=== PATIENT | female | born 1945 | race Caucasian/White ===

== ENCOUNTER 2018-10-09 09:50 | Inpatient (IN) | payer MEDICARE, MEDICAID ==
[~2018-10-09] VITALS: Ht 165.1 cm; Wt 90.6 kg
[2018-10-09] VITALS (15 sets, daily range): BP systolic 92–147; BP diastolic 46–80
[2018-10-09] MEDS: normal saline 1000ml 1,000 ML IV SCH (11:38)
[2018-10-09] MEDS ORDERED: morphine 4 MG/ML inj SYRINge IV PRN ×4 (11:40→13:45)
[2018-10-09] MEDS ORDERED: potassium Cl 20 mEq SR tablet PO PRN ×2 (11:40)
[2018-10-09] MEDS ORDERED: magnesium hydroxide 30ml (MOM) UD suspension PO PRN (11:40)
[2018-10-09] MEDS ORDERED: sodium phosphate inj. 30 MMOL in dextrose 5%-water 250 ML IV PRN (11:40)
[2018-10-09] MEDS ORDERED: magnesium 4gm in 100ml NS 100 ML IV PRN (11:40)
[2018-10-09] MEDS ORDERED: acetaminophen 325mg tablet PO PRN ×2 (11:40)
[2018-10-09] MEDS ORDERED: ondansetron/PF 4mg/2ml inj IV PRN ×2 (11:40→13:45)
[2018-10-09] MEDS ORDERED: magnesium 2GM in 50ml NS 50 ML IV PRN (11:40)
[2018-10-09] MEDS ORDERED: magnesium Cl slow-release 64mg tablet PO PRN (11:40)
[2018-10-09] MEDS ORDERED: Neutra Phos packet PO PRN (11:40)
[2018-10-09] MEDS ORDERED: vancomycin/NS 1 GM ADD-VANTAGE 250 ML IV ONE (11:45)
[2018-10-09] MEDS ORDERED: ceFAZolin 1GM/D5W- ADD-VANTAGE 50 ML IV ONE (11:45)
--- NOTE | 2018-10-09 12:30 | NUR ---
Pt arrived by helicopter and crew from [facility] Pt drowsy but answers questions Appears very weak 3 + pitting edema to legs emily noted Answers questions appropriately Very weak pulse noted HR 130's A flutter vs A fib B/p after several attemps 120 sys by cuff 02 sat 96 % on 2l/min Appears SOB but denies and pain or sob Lungs with scattered crackles IJ to right neck patent
[2018-10-09] MEDS ORDERED: ceFAZolin 1000mg inj ONE ×3 (12:41→13:34)
[2018-10-09] MEDS ORDERED: BUPIVAcaine/PF 2.5mg/ml (0.25%) 10ml vial ONE (12:41)
--- NOTE | 2018-10-09 12:45 | NUR ---
Echo being done at bedside Dr. Lam and surg crew at bedside Dr. Lizarraga present and inserting A line right groin without difficulty B/P 127/71 HR 130 a flutter rr 20 sat 96 %
[2018-10-09] MEDS ORDERED: sevoflurane 250ml liquid IH ONE (12:52)
[2018-10-09] MEDS ORDERED: etomidate 2mg/ml inj. ONE (12:58)
[2018-10-09] MEDS ORDERED: succinylcholine 20mg/ml inj IV ONE (12:59)
[2018-10-09] MEDS ORDERED: fentaNYL /PF 50mcg/ml 5ml ampule ONE (12:59)
--- NOTE | 2018-10-09 13:00 | NUR ---
To OR for pericardial window Pt consented Attempted to reach daughter No answer
[2018-10-09] MEDS ORDERED: phenylephrine 10mg/ml inj. ONE (13:01)
[2018-10-09] MEDS ORDERED: rocuronium 10mg/ml inj IV ONE (13:35)
[2018-10-09] MEDS ORDERED: albumin (Human) 5% 250ml 250 ML IV ONE (13:39)
[2018-10-09] MEDS ORDERED: metoclopramide 5 mg/ml inj IV PRN (13:45)
[2018-10-09] MEDS ORDERED: CADD PCA waste documentation MC PRN (13:45)
[2018-10-09] MEDS ORDERED: naloxone 0.4 mg/ml inj IV PRN (13:45)
--- NOTE | 2018-10-09 14:15 | NUR ---
pt received from surg post pericardial drainage and insertion of single midsternal chest tube mod amt of serous sang drainage No air leak noted Vss Mointer shows RSR rate 80 Pt cool Noted toes emily blue with sluggish circ Doppler post tibal pulses present Lung clear Pt on vent see notes RT Pt sedated
[2018-10-09 15:00] LABS: ABG BASE EXCESS -10.1 mmol/L (-2.0-3.0); ABG HCO3 15.2 mmol/L (22.0-26.0); ABG OXYGEN SATURATION 99.4 % (95-98); ABG PCO2 (T) 31.5 mmHg (32.0-45.0); ABG PH (T) 7.302 (7.350-7.450); ABG PO2 (T) 275.2 mmHg (83-108); FCOHb 0.7 % (0.5-1.5); FMetHb 0.2 % (0.3-1.12); FO2Hb 98.5 % (94-100)
--- NOTE | 2018-10-09 15:00 | NUR ---
Dr. Lizarraga at bedside and Dr. Esparza orders received and noted Orders for cat scan with contrast Dr. Lizarraga aware of pt allergies Meds to be given before prep
[2018-10-09 15:24] LABS: EOSINOPHILS % (AUTO) 0.3 % (0-6); HEMATOCRIT 28.6 % (35.0-45.0); HEMOGLOBIN 9.3 g/dl (12.0-16.0); LYMPHOCYTES # (AUTO) 0.5 X10'3 (1.1-4.8); MEAN CORPUSCULAR HEMOGLOBIN 27.5 PG (27.0-31.0); MEAN CORPUSCULAR HGB CONC 32.6 g/dL (33.0-36.5); MEAN CORPUSCULAR VOLUME 84.4 FL (78-98); MEAN PLATELET VOLUME 8.8 FL (7.4-10.4); MONOCYTES # (AUTO) 0.2 X10'3 (0-0.9); MONOCYTES % (AUTO) 3.6 % (2-12); NEUTROPHILS # (AUTO) 3.6 X10'3 (1.8-7.7); NEUTROPHILS % (AUTO) 83.1 % (42-75); PLATELET COUNT 146 X10'3 (140-440); RED BLOOD COUNT 3.39 X10'6 (4.20-5.60); RED CELL DISTRIBUTION WIDTH 18.5 % (11.5-14.5); WHITE BLOOD COUNT 4.3 X10'3 (4.5-11.0)
[2018-10-09 15:49] LABS: ALANINE AMINOTRANSFERASE 189 U/L (12-78); ALBUMIN 2.2 G/DL (3.4-5.0); ALBUMIN/GLOBULIN RATIO 0.8 (1.1-1.5); ALKALINE PHOSPHATASE 116 IU/L (46-116); ANION GAP 13 (8-16); ASPARTATE AMINO TRANSFERASE 571 U/L (10-37); BILIRUBIN,TOTAL 0.4 MG/DL (0.1-1.0); BLOOD UREA NITROGEN 18 MG/DL (7-18); BUN/CREATININE RATIO 18.6 (6.6-38.0); CALCIUM 7.3 MG/DL (8.5-10.1); CHLORIDE 107 MMOL/L (99-107); CREATININE 0.97 MG/DL (0.40-0.90); GLUCOSE 110 MG/DL (70-104); LDL CHOLESTEROL 34 MG/DL (50-100); MAGNESIUM 1.6 MG/DL (1.5-2.4); PHOSPHORUS 3.2 MG/DL (2.3-4.5); POTASSIUM 3.6 MMOL/L (3.5-5.1); SODIUM 137 MMOL/L (135-145); TOTAL CARBON DIOXIDE 16.8 MMOL/L (24-32); eGFR 56 ML/MIN
[2018-10-09 15:59] LABS: ALBUMIN,BODY FLUID 1.2 G/DL; AMYLASE,BODY FLUID 6 U/L; BF BILI 3.2 MG/DL; LIPASE,BODY FLUID 78 U/L; UREA NITROGEN, BODY FLUID 20 MG/DL
[2018-10-09 16:00] LABS: GLUCOSE,BODY FLUID 23 MG/DL; LDH,BODY FLUID 3350 U/L; TOTAL PROTEIN,BODY FLUID 3.8 G/DL
[2018-10-09 16:21] LABS: LYMPHOCYTES,BODY FLUID 25 %; MONOCYTES,BODY FLUID 44 %; NEUTROPHILS,BODY FLUID 31 %
[2018-10-09 16:23] LABS: BF WBC COUNT 1889 /CU MM (0-1000); BFAPPEAR BLOODY; BFCOLOR RED; BFVOLUME 170 ML
[2018-10-09 16:24] LABS: BF RBC COUNT 1615000 /CU MM
[2018-10-09] MEDS ORDERED: levoTHYROXINE sod inj. 100mcg/5 ml vial IV ONE (16:55)
[2018-10-09] MEDS: ceFAZolin inj. 1,000 MG in dextrose 5%-water 50ml 50 ML IV SCH (17:00)
[2018-10-09] MEDS: methylPREDNISolone sod succ 125mg/2ml vial IV SCH ×2 (17:00→20:00)
--- NOTE | 2018-10-09 17:05 | NUR ---
Pt starting to awaken special librarian weakly emily Nods head "yes " to pain med with morphine IV oral care done Pt reposit onto left side margarita well UO QS amts CT with mod drainage VSS Orders received for sedation for night Cat scan of abd ordered in AM after prep
[2018-10-09] MEDS ORDERED: FENTANYL-0.9 % NACL/PF 100 ML IV PRN (17:13)
[2018-10-09] MEDS ORDERED: midazolam 100mg in NS 100ml 100 ML IV PRN (17:13)
[2018-10-09] MEDS ORDERED: fentaNYL/PF 50MCG/1 ML 2ML syringe IV PRN (17:15)
[2018-10-09] MEDS ORDERED: midazolam 2 mg/2 ml injection IV ONE (17:15)
[2018-10-09 17:28] LABS: MINUTE VOLUME 7.3 L/min; TIDAL VOLUME 500 mL
[2018-10-09] MEDS ORDERED: DIPH1TAB28 PO (18:09)
[2018-10-09] MEDS ORDERED: CHOL100046 PO (18:09)
[2018-10-09] MEDS ORDERED: CLON0.5T12 PO (18:09)
[2018-10-09] MEDS ORDERED: MULT-955 PO (18:09)
[2018-10-09] MEDS ORDERED: LIDO1ADH44 TOP (18:09)
[2018-10-09] MEDS ORDERED: LAMO25TA PO (18:09)
[2018-10-09] MEDS ORDERED: ATOR40TA72 PO (18:09)
[2018-10-09] MEDS ORDERED: MODA200T48 PO (18:09)
[2018-10-09] MEDS ORDERED: CYAN1TAB16 PO (18:09)
[2018-10-09] MEDS ORDERED: ACYC400T PO (18:09)
[2018-10-09] MEDS ORDERED: SUMA50TA17 PO (18:09)
[2018-10-09] MEDS ORDERED: DULO30CA51 PO (18:09)
[2018-10-09] MEDS ORDERED: PREG100C PO (18:09)
[2018-10-09] MEDS ORDERED: OMEP20CA10 PO (18:12)
[2018-10-09] MEDS ORDERED: diphenhydrAMINE 50 mg/ml inj IV ONE (18:30)
--- NOTE | 2018-10-09 18:30 | NUR ---
Problems reprioritized. Patient report given, questions answered & plan of care reviewed with Wilder BURNETTEbiomedical technician [facility] .
[2018-10-09] MEDS: ipratropium/albuterol 3ml nebule NEB PRN (19:05)
[2018-10-09] MEDS: docusate sod 100mg capsule PO SCH (20:00)
[2018-10-09] MEDS: FENTANYL-0.9 % NACL/PF 100 ML IV SCH (20:29)
[2018-10-09] MEDS: diatr meglu/diatrizoate 30ml oral sol.-(3 dose) bottle PO SCH (21:54)
[2018-10-10] VITALS (24 sets, daily range): BP systolic 88–129; BP diastolic 46–60
[2018-10-10] MEDS: ceFAZolin inj. 1,000 MG in dextrose 5%-water 50ml 50 ML IV SCH (00:14)
[2018-10-10] MEDS: normal saline 1000ml 1,000 ML IV SCH ×2 (00:58→14:18)
[2018-10-10 03:08] LABS: BASOPHILS % (AUTO) 0.1 % (0-1); EOSINOPHILS % (AUTO) 0.8 % (0-6); HEMATOCRIT 29.4 % (35.0-45.0); HEMOGLOBIN 9.6 g/dl (12.0-16.0); LYMPHOCYTES # (AUTO) 0.8 X10'3 (1.1-4.8); LYMPHOCYTES % (AUTO) 16.1 % (21-51); MEAN CORPUSCULAR HEMOGLOBIN 27.3 PG (27.0-31.0); MEAN CORPUSCULAR HGB CONC 32.5 g/dL (33.0-36.5); MEAN CORPUSCULAR VOLUME 83.9 FL (78-98); MEAN PLATELET VOLUME 9.5 FL (7.4-10.4); MONOCYTES # (AUTO) 0.1 X10'3 (0-0.9); MONOCYTES % (AUTO) 2.9 % (2-12); NEUTROPHILS # (AUTO) 3.8 X10'3 (1.8-7.7); NEUTROPHILS % (AUTO) 80.1 % (42-75); PLATELET COUNT 169 X10'3 (140-440); RED CELL DISTRIBUTION WIDTH 18.7 % (11.5-14.5); WHITE BLOOD COUNT 4.7 X10'3 (4.5-11.0)
[2018-10-10 03:18] LABS: ALANINE AMINOTRANSFERASE 208 U/L (12-78); ALBUMIN 1.9 G/DL (3.4-5.0); ALBUMIN/GLOBULIN RATIO 0.7 (1.1-1.5); ALKALINE PHOSPHATASE 106 IU/L (46-116); ANION GAP 13 (8-16); ASPARTATE AMINO TRANSFERASE 518 U/L (10-37); BILIRUBIN,TOTAL 0.2 MG/DL (0.1-1.0); BLOOD UREA NITROGEN 17 MG/DL (7-18); BUN/CREATININE RATIO 18.5 (6.6-38.0); CALCIUM 7.2 MG/DL (8.5-10.1); CHLORIDE 109 MMOL/L (99-107); CREATININE 0.92 MG/DL (0.40-0.90); GLUCOSE 110 MG/DL (70-104); MAGNESIUM 1.4 MG/DL (1.5-2.4); PHOSPHORUS 2.8 MG/DL (2.3-4.5); POTASSIUM 3.4 MMOL/L (3.5-5.1); SODIUM 139 MMOL/L (135-145); TOTAL PROTEIN 4.6 G/DL (6.4-8.2); eGFR 60 ML/MIN
[2018-10-10] MEDS: methylPREDNISolone sod succ 125mg/2ml vial IV SCH ×3 (03:40→14:18)
[2018-10-10 05:46] LABS: ABG BASE EXCESS -9.9 mmol/L (-2.0-3.0); ABG HCO3 15.5 mmol/L (22.0-26.0); ABG OXYGEN SATURATION 96.4 % (95-98); ABG PCO2 (T) 31.4 mmHg (32.0-45.0); ABG PH (T) 7.307 (7.350-7.450); ABG PO2 (T) 92.1 mmHg (83-108); FCOHb 0.3 % (0.5-1.5); FMetHb 0.2 % (0.3-1.12); FO2Hb 95.9 % (94-100); MINUTE VOLUME 6 L/min; PATIENT TEMPERATURE 36.4; PEEP 5 cm H2O; RESPIRATORY RATE 12 b/min; RESPIRATORY RATE (OBSERVED) 12 b/min; TIDAL VOLUME 500 mL; TOTAL HEMOGLOBIN 10.9 G/dl (12.0-16.0)
[2018-10-10] MEDS ORDERED: levoTHYROXINE 25mcg tablet PO SCH (07:00)
[2018-10-10] MEDS ORDERED: albumin (Human) 5% 250ml 250 ML IV ONE (07:20)
[2018-10-10] MEDS ORDERED: potassium Cl 20mEq/100mL bag 100 ML IV PRN ×2 (07:25)
[2018-10-10] MEDS: diatr meglu/diatrizoate 30ml oral sol.-(3 dose) bottle PO SCH ×2 (07:38→18:15)
[2018-10-10] MEDS: docusate sod 100mg capsule PO SCH ×2 (08:00→20:00)
[2018-10-10] MEDS: pantoprazole 40 MG vial IV SCH (09:09)
--- NOTE | 2018-10-10 10:19 | NUR ---
Cdiff isolation cancelled per ID
[2018-10-10] MEDS: potassium Cl 20mEq/100mL bag 100 ML IV PRN ×4 (10:33→16:00)
--- NOTE | 2018-10-10 11:47 | NUR ---
Dr Rae at bedside. Orders received. CT abd/pelvis with PO contrast only. Plan to extubate today
[2018-10-10 12:16] LABS: OXYGEN SATURATION (MIXED VEN) 68.1 % (60-80); PO2 MIXED VENOUS (TEMP COR) 34.1 mmHg (35-46)
--- NOTE | 2018-10-10 13:30 | NUR ---
Back from CT; no complications. Extubated to 4L NC; pt tolerated well
[2018-10-10] MEDS: ALBUMIN 25% IV SCH ×2 (13:59→14:13)
[2018-10-10] MEDS: levoTHYROXINE sod inj. 100mcg/5 ml vial IV SCH (14:36)
--- NOTE | 2018-10-10 15:02 | NUR ---
Initial: Patient is on mechanical ventilated on CPAP mode. Mildly sedated, hypothermic per MD note and is s/p subxiphoid pericardial window procedure on 10/09 after found to have pericardiac tamponade; NPO at this time. Recommend: 1. IF to receive nutrition while intubated recommend continuous tube feedings per OG tube using Vital AF at 70 ml/hr 2. IF to receive tube feedings: daily wts, prealbumin q /, water flush per MD 3. When extubated, advance diet as medically indicated to regular Addendum: 10/10/18 at [address] Amended: Links added.
--- NOTE | 2018-10-10 15:27 | NUR ---
Initial: Patient was recently extubated, s/p subxiphoid pericardial window procedure on 10/09 after found to have pericardiac tamponade; NPO at this time. Recommend: 1. advance diet as medically indicated to regular 2. monitor need for ONS 3. WT per rx Addendum: 10/10/18 at [address] Amended: Links added.
[2018-10-10] MEDS: albumin 25% 50mL bottle 100 ML IV SCH ×2 (16:03→21:42)
--- NOTE | 2018-10-10 17:15 | NUR ---
Patient taken to CT @1230. All vitals and data in the monitors are gone from before that time. Unable to chart any vitals for the first half of the shift.
[2018-10-10] MEDS: mineral oil/petrolatum ophthal oint EACHEYE SCH (20:00)
[2018-10-10] MEDS: methylPREDNISolone sod succ/PF 40mg inj. IV SCH (21:24)
[2018-10-10] MEDS: heparin, porcine 5000 units/ml vial SQ SCH (21:44)
[2018-10-11] VITALS (24 sets, daily range): BP systolic 98–152; BP diastolic 54–87
[2018-10-11] MEDS: albumin 25% 50mL bottle 100 ML IV SCH ×2 (02:00→08:08)
[2018-10-11] MEDS: mineral oil/petrolatum ophthal oint EACHEYE SCH ×4 (02:00→20:00)
[2018-10-11 03:49] LABS: BASOPHILS % (AUTO) 0.1 % (0-1); EOSINOPHILS % (AUTO) 0 % (0-6); HEMATOCRIT 30.6 % (35.0-45.0); HEMOGLOBIN 9.8 g/dl (12.0-16.0); LYMPHOCYTES # (AUTO) 0.6 X10'3 (1.1-4.8); LYMPHOCYTES % (AUTO) 9.2 % (21-51); MEAN CORPUSCULAR HEMOGLOBIN 27.1 PG (27.0-31.0); MEAN CORPUSCULAR HGB CONC 32.1 g/dL (33.0-36.5); MEAN CORPUSCULAR VOLUME 84.5 FL (78-98); MEAN PLATELET VOLUME 9.6 FL (7.4-10.4); MONOCYTES # (AUTO) 0.2 X10'3 (0-0.9); MONOCYTES % (AUTO) 3.1 % (2-12); NEUTROPHILS # (AUTO) 5.9 X10'3 (1.8-7.7); NEUTROPHILS % (AUTO) 87.6 % (42-75); PLATELET COUNT 224 X10'3 (140-440); RED BLOOD COUNT 3.62 X10'6 (4.20-5.60); RED CELL DISTRIBUTION WIDTH 19.4 % (11.5-14.5); WHITE BLOOD COUNT 6.7 X10'3 (4.5-11.0)
[2018-10-11 03:52] LABS: ALANINE AMINOTRANSFERASE 101 U/L (12-78); ALBUMIN 3.3 G/DL (3.4-5.0); ALBUMIN/GLOBULIN RATIO 1.6 (1.1-1.5); ALKALINE PHOSPHATASE 115 IU/L (46-116); ANION GAP 16 (8-16); ASPARTATE AMINO TRANSFERASE 171 U/L (10-37); BILIRUBIN,TOTAL 0.4 MG/DL (0.1-1.0); BLOOD UREA NITROGEN 15 MG/DL (7-18); BUN/CREATININE RATIO 17.9 (6.6-38.0); CALCIUM 7.9 MG/DL (8.5-10.1); CHLORIDE 109 MMOL/L (99-107); CREATININE 0.84 MG/DL (0.40-0.90); GLUCOSE 115 MG/DL (70-104); MAGNESIUM 2.3 MG/DL (1.5-2.4); POTASSIUM 4.6 MMOL/L (3.5-5.1); SODIUM 141 MMOL/L (135-145); TOTAL CARBON DIOXIDE 16.3 MMOL/L (24-32); TOTAL PROTEIN 5.4 G/DL (6.4-8.2); eGFR 66 ML/MIN
[2018-10-11] MEDS: FENTANYL-0.9 % NACL/PF 100 ML IV SCH (07:46)
[2018-10-11] MEDS: docusate sod 100mg capsule PO SCH ×2 (07:46→19:41)
[2018-10-11] MEDS: methylPREDNISolone sod succ/PF 40mg inj. IV SCH ×3 (08:08→19:27)
[2018-10-11] MEDS: heparin, porcine 5000 units/ml vial SQ SCH ×2 (08:09→19:28)
[2018-10-11] MEDS: pantoprazole 40 MG vial IV SCH (08:09)
[2018-10-11] MEDS: levoTHYROXINE sod inj. 100mcg/5 ml vial IV SCH (08:14)
[2018-10-11] MEDS ORDERED: bisacodyl 10mg suppository rectal RC PRN (11:40)
[2018-10-11] MEDS ORDERED: tuberculin, purif. prot. deriv. 5 units/0.1ml ID ONE (13:00)
[2018-10-11] MEDS: HYDROcodone/acetaminophen 10/325mg tab PO PRN ×2 (18:39→23:06)
[2018-10-11] MEDS: clonazePAM 0.5mg tablet PO PRN (19:26)
[2018-10-12] VITALS (16 sets, daily range): BP systolic 121–158; BP diastolic 49–87
[2018-10-12] MEDS: clonazePAM 0.5mg tablet PO PRN ×3 (00:29→22:45)
[2018-10-12] MEDS: mineral oil/petrolatum ophthal oint EACHEYE SCH ×3 (02:00→14:00)
[2018-10-12] MEDS: methylPREDNISolone sod succ/PF 40mg inj. IV SCH ×4 (02:00→19:45)
[2018-10-12] MEDS: HYDROcodone/acetaminophen 10/325mg tab PO PRN ×2 (03:48→19:44)
[2018-10-12 04:17] LABS: BASOPHILS % (AUTO) 0.3 % (0-1); EOSINOPHILS # (AUTO) 0.1 X10'3 (0-0.9); EOSINOPHILS % (AUTO) 0.9 % (0-6); HEMATOCRIT 39.3 % (35.0-45.0); HEMOGLOBIN 12.4 g/dl (12.0-16.0); LYMPHOCYTES # (AUTO) 0.7 X10'3 (1.1-4.8); LYMPHOCYTES % (AUTO) 8.3 % (21-51); MEAN CORPUSCULAR HEMOGLOBIN 26.8 PG (27.0-31.0); MEAN CORPUSCULAR HGB CONC 31.6 g/dL (33.0-36.5); MEAN CORPUSCULAR VOLUME 84.7 FL (78-98); MEAN PLATELET VOLUME 9.3 FL (7.4-10.4); MONOCYTES # (AUTO) 0.2 X10'3 (0-0.9); NEUTROPHILS # (AUTO) 7.3 X10'3 (1.8-7.7); NEUTROPHILS % (AUTO) 88.5 % (42-75); PLATELET COUNT 317 X10'3 (140-440); RED BLOOD COUNT 4.64 X10'6 (4.20-5.60); RED CELL DISTRIBUTION WIDTH 20.2 % (11.5-14.5); WHITE BLOOD COUNT 8.2 X10'3 (4.5-11.0)
[2018-10-12 04:21] LABS: ALANINE AMINOTRANSFERASE 91 U/L (12-78); ALBUMIN 3.2 G/DL (3.4-5.0); ALBUMIN/GLOBULIN RATIO 1.3 (1.1-1.5); ANION GAP 15 (8-16); ASPARTATE AMINO TRANSFERASE 126 U/L (10-37); BILIRUBIN,TOTAL 0.4 MG/DL (0.1-1.0); BLOOD UREA NITROGEN 18 MG/DL (7-18); BUN/CREATININE RATIO 18.2 (6.6-38.0); CALCIUM 7.9 MG/DL (8.5-10.1); CHLORIDE 109 MMOL/L (99-107); CREATININE 0.99 MG/DL (0.40-0.90); GLUCOSE 146 MG/DL (70-104); MAGNESIUM 1.8 MG/DL (1.5-2.4); PHOSPHORUS 3.2 MG/DL (2.3-4.5); POTASSIUM 4.8 MMOL/L (3.5-5.1); SODIUM 142 MMOL/L (135-145); TOTAL CARBON DIOXIDE 17.8 MMOL/L (24-32); TOTAL PROTEIN 5.7 G/DL (6.4-8.2); eGFR 55 ML/MIN
[2018-10-12 04:22] LABS: ALKALINE PHOSPHATASE 121 IU/L (46-116)
--- NOTE | 2018-10-12 06:30 | NUR ---
Patient in room CICU 2009. I have received report from VASILE Hdz and had the opportunity to ask questions and assume patient care.
[2018-10-12] MEDS: docusate sod 100mg capsule PO SCH ×2 (07:31→19:37)
[2018-10-12 08:29] LABS: LARGE PLATELETS FEW; PLATELET ESTIMATE NORMAL
[2018-10-12 08:30] LABS: ANISOCYTOSIS 2+; HYPOCHROMASIA 1+; MICROCYTOSIS 1+; POIKILOCYTOSIS FEW; POLYCHROMASIA FEW; TARGET CELLS FEW
[2018-10-12] MEDS: levoTHYROXINE sod inj. 100mcg/5 ml vial IV SCH (08:39)
[2018-10-12] MEDS: pantoprazole 40 MG vial IV SCH (08:39)
[2018-10-12] MEDS: heparin, porcine 5000 units/ml vial SQ SCH ×2 (08:40→19:45)
--- NOTE | 2018-10-12 10:40 | NUR ---
Discontinued right femoral arterial line, discontinued right internal jugular central line. 20 g PIV placed in right forearm, attempt x1.
--- NOTE | 2018-10-12 10:48 | NUR ---
Report called to VASILE Melendez on Telemetry unit. Pt is currently working with Physical Therapy.
--- NOTE | 2018-10-12 12:30 | NUR ---
Patient in room PCU 3010. I have received report from VASILE Hinkle and had the opportunity to ask questions and assume patient care. Patient stable in no apparent distress and resting comfortably in bed. Vitals stable, 2 RN skin check completed.
--- NOTE | 2018-10-12 16:08 | NUR ---
Called Arnie Parveen to notify her patient's heart rate up to 208 while having bowel movement.
[2018-10-12 17:11] LABS: BASOPHILS # (AUTO) 0.1 X10'3 (0-0.2); BASOPHILS % (AUTO) 0.5 % (0-1); EOSINOPHILS % (AUTO) 0 % (0-6); HEMATOCRIT 42.1 % (35.0-45.0); HEMOGLOBIN 13.5 g/dl (12.0-16.0); LYMPHOCYTES # (AUTO) 0.8 X10'3 (1.1-4.8); LYMPHOCYTES % (AUTO) 6.9 % (21-51); MEAN CORPUSCULAR HEMOGLOBIN 27.2 PG (27.0-31.0); MEAN CORPUSCULAR HGB CONC 32.1 g/dL (33.0-36.5); MEAN CORPUSCULAR VOLUME 84.8 FL (78-98); MEAN PLATELET VOLUME 9.4 FL (7.4-10.4); MONOCYTES # (AUTO) 0.3 X10'3 (0-0.9); MONOCYTES % (AUTO) 2.9 % (2-12); NEUTROPHILS % (AUTO) 89.7 % (42-75); PLATELET COUNT 325 X10'3 (140-440); RED BLOOD COUNT 4.96 X10'6 (4.20-5.60); RED CELL DISTRIBUTION WIDTH 20.9 % (11.5-14.5); WHITE BLOOD COUNT 11.1 X10'3 (4.5-11.0)
[2018-10-12 17:33] LABS: NUCLEATED RED BLOOD CELLS 11 /100WBC (0-0); TOTAL CELLS COUNTED 100
[2018-10-12 17:34] LABS: ANISOCYTOSIS 3+; PLATELET ESTIMATE NORMAL; SMUDGE CELLS FEW
[2018-10-12 17:36] LABS: LARGE PLATELETS FEW
[2018-10-12 17:37] LABS: BURR CELLS 1+; HYPOCHROMASIA 1+; POLYCHROMASIA 2+; TARGET CELLS FEW
--- NOTE | 2018-10-12 18:30 | NUR ---
Problems reprioritized. Patient report given, questions answered & plan of care reviewed with VASILE Carreno and VASILE Wilcox.
--- NOTE | 2018-10-12 18:41 | NUR ---
Patient in room PCU 3010. I have received report from Nora BURNETTE and had the opportunity to ask questions and assume patient care.
[2018-10-13] VITALS (19 sets, daily range): BP systolic 89–119; BP diastolic 40–70
--- NOTE | 2018-10-13 00:58 | NUR ---
Patient is not speaking many words. She is unable to provide history or information. Addendum: 10/13/18 at 0058 by Brenden Abbott RN Amended: Links added.
[2018-10-13] MEDS: methylPREDNISolone sod succ/PF 40mg inj. IV SCH ×4 (02:43→20:11)
--- NOTE | 2018-10-13 02:58 | NUR ---
Left voicemail with Dr. Amezcua, fish hatchery superintendent, regarding five beat run of tachycardia
--- NOTE | 2018-10-13 03:13 | NUR ---
Paged Respiratory for STAT ABG.
--- NOTE | 2018-10-13 03:30 | NUR ---
MIGDALIA AT BEDSIDE TO ASSESS PATIENT WITH ALOC AND INCREASED WEAKNESS; PATIENT UNABLE TO MOVE EXTREMITIES, PATIENT'S ALERTNESS DECREASED TO AXO X1. MIGDALIA ORDERED AMMONIA AND HEAD CT AND ABG. ABG SHOWING PO2 LOW AND PATIENT PLACED ON 15L MASK BY RT. O2SAT 95% WITH CONTINUOUS PULSE OX ON. PATIENT V/S REMAIN STABLE; SEE V/S INTERVENTION. CT PAGED TO MEDICAL CLAIMS ANALYST PATIENT
[2018-10-13 03:36] LABS: ABG BASE EXCESS -12.8 mmol/L (-2.0-3.0); ABG HCO3 14.4 mmol/L (22.0-26.0); ABG OXYGEN SATURATION 90.8 % (95-98); ABG PCO2 (T) 36.4 mmHg (32.0-45.0); ABG PH (T) 7.211 (7.350-7.450); ABG PO2 (T) 64.1 mmHg (83-108); ALLEN'S TEST Positive; FCOHb 0.7 % (0.5-1.5); FLOW 5 L/min; FMetHb 0.3 % (0.3-1.12); FO2Hb 89.9 % (94-100); PATIENT TEMPERATURE 36.3; RESPIRATORY RATE (OBSERVED) 22 b/min; TOTAL HEMOGLOBIN 13.8 G/dl (12.0-16.0)
[2018-10-13 04:03] LABS: BASOPHILS # (AUTO) 0.1 X10'3 (0-0.2); BASOPHILS % (AUTO) 0.7 % (0-1); EOSINOPHILS % (AUTO) 0 % (0-6); HEMATOCRIT 42.8 % (35.0-45.0); HEMOGLOBIN 13.5 g/dl (12.0-16.0); LYMPHOCYTES # (AUTO) 0.6 X10'3 (1.1-4.8); LYMPHOCYTES % (AUTO) 3.4 % (21-51); MEAN CORPUSCULAR HEMOGLOBIN 27.2 PG (27.0-31.0); MEAN CORPUSCULAR HGB CONC 31.6 g/dL (33.0-36.5); MEAN PLATELET VOLUME 9.6 FL (7.4-10.4); MONOCYTES # (AUTO) 0.3 X10'3 (0-0.9); MONOCYTES % (AUTO) 2.1 % (2-12); NEUTROPHILS # (AUTO) 15.3 X10'3 (1.8-7.7); NEUTROPHILS % (AUTO) 93.8 % (42-75); PLATELET COUNT 326 X10'3 (140-440); RED BLOOD COUNT 4.98 X10'6 (4.20-5.60); RED CELL DISTRIBUTION WIDTH 21.8 % (11.5-14.5)
[2018-10-13 04:09] LABS: ALANINE AMINOTRANSFERASE 90 U/L (12-78); ALBUMIN 3.2 G/DL (3.4-5.0); ALBUMIN/GLOBULIN RATIO 1.2 (1.1-1.5); ALKALINE PHOSPHATASE 127 IU/L (46-116); ANION GAP 14 (8-16); ASPARTATE AMINO TRANSFERASE 112 U/L (10-37); BILIRUBIN,TOTAL 0.4 MG/DL (0.1-1.0); BLOOD UREA NITROGEN 24 MG/DL (7-18); BUN/CREATININE RATIO 21.2 (6.6-38.0); CALCIUM 8.3 MG/DL (8.5-10.1); CHLORIDE 110 MMOL/L (99-107); CREATININE 1.13 MG/DL (0.40-0.90); GLUCOSE 191 MG/DL (70-104); MAGNESIUM 1.9 MG/DL (1.5-2.4); PHOSPHORUS 3.4 MG/DL (2.3-4.5); POTASSIUM 5.4 MMOL/L (3.5-5.1); SODIUM 142 MMOL/L (135-145); TOTAL CARBON DIOXIDE 18.3 MMOL/L (24-32); TOTAL PROTEIN 5.8 G/DL (6.4-8.2); TROPONIN I 0.31 NG/ML (0.0-0.05); eGFR 47 ML/MIN
--- NOTE | 2018-10-13 04:25 | NUR ---
Telephoned Parker Amezcua, Human Resources Benefits Manager regarding lab results. Mr. Jaegercock states that he is aware and is currently reviewing these lab results. CT results still pending. No new orders at this time.
--- NOTE | 2018-10-13 04:43 | NUR ---
Patient seems to be even weaker and less alert. Locksmith Helper notified. Respiratory therapy and radiology involved. See other notes. Addendum: 10/13/18 at 0447 by Brenden Abbott RN Amended: Links added.
--- NOTE | 2018-10-13 05:44 | NUR ---
CALLED LAB ABOUT REDRAWING LACTIC IN 2 HOURS FROM FIRST ONE THAT WAS 2.5; NO NEW ORDER PLACED FOR A REDRAW YET. USED CAR RENOVATOR STATED THEY WOULD FIX THIS
--- NOTE | 2018-10-13 06:24 | NUR ---
ORIENTEE documentation: I have reviewed and agree with all interventions, assessments performed and documented by CONNIE BURNETTE.
--- NOTE | 2018-10-13 06:24 | NUR ---
ORIENTEE Medication Administration: For this medication-pass time frame, all medication were reviewed, dispensed, administered and documented per hospital policy by CONNIE BURNETTE.
--- NOTE | 2018-10-13 06:35 | NUR ---
Problems reprioritized. Patient report given, questions answered & plan of care reviewed with PRADEEP BURNETTE. PATIENT AWAKE ON 15L MASK; CHEST TUBE ASSESSED WITH DAY SHIFT NURSE.
[2018-10-13 06:46] LABS: ANISOCYTOSIS 3+; HYPOCHROMASIA 1+; NUCLEATED RED BLOOD CELLS 10 /100WBC (0-0); PLATELET ESTIMATE NORMAL; POLYCHROMASIA 2+; TOTAL CELLS COUNTED 100
[2018-10-13 06:47] LABS: LARGE PLATELETS FEW; SMUDGE CELLS 1+
[2018-10-13] MEDS: ipratropium/albuterol 3ml nebule NEB PRN (07:59)
[2018-10-13] MEDS: levoTHYROXINE sod inj. 100mcg/5 ml vial IV SCH (08:00)
[2018-10-13] MEDS: docusate sod 100mg capsule PO SCH ×2 (08:00→19:50)
[2018-10-13 08:11] LABS: ABG BASE EXCESS -11.9 mmol/L (-2.0-3.0); ABG HCO3 17.7 mmol/L (22.0-26.0); ABG OXYGEN SATURATION 93.5 % (95-98); ABG PCO2 (T) 55.3 mmHg (32.0-45.0); ABG PH (T) 7.122 (7.350-7.450); ABG PO2 (T) 82.2 mmHg (83-108); ALLEN'S TEST Positive; FCOHb 0.4 % (0.5-1.5); FLOW 15 L/min; FMetHb 0.4 % (0.3-1.12); FO2Hb 92.8 % (94-100)
--- NOTE | 2018-10-13 08:25 | NUR ---
Patient received from PCU for rapid response for ALOC and SOB. ABG and CXR obtained. Beside report received. Patient became bradycardiac in the 40's while transferring pt to ICU bed and BP dropped. Recovered quickly. CT @10ml. CT found to be clamped. Chest tube unclamped and 400ml serous fluid drained.
--- NOTE | 2018-10-13 08:30 | NUR ---
Patient intubated, at the bedside.
--- NOTE | 2018-10-13 09:00 | NUR ---
Patient's MAP in the 50's for the last hour. MD notified. New orders received and CVL placed for Levophed if needed
--- NOTE | 2018-10-13 09:04 | NUR ---
When I arrived this morning I received report from Ev and Brenden RNs. They told me the pt. was A&O x2 yesterday but over night started to get less responsive. Ev stated they did an ABG and chest x-ray last night and had to place the pt. on a mask at 15L but they shift boss doctor did not want to move her back to ICU. This morning she is really lethargic and not sating very well. Silvio Gannon came and saw her and did not think she looked very good so he left to discuss with Dr. Evans. We ordered another chest x-ray for this morning and another ABG. I called Dr. Rae and informed him of the situation and he ordered me to take her to ICU. Dr. Rae then arrived on our floor and we took her down to ICU.
[2018-10-13] MEDS: midazolam 2 mg/2 ml injection IV PRN ×8 (09:27→16:30)
[2018-10-13 09:56] LABS: ABG BASE EXCESS -9.7 mmol/L (-2.0-3.0); ABG HCO3 16.7 mmol/L (22.0-26.0); ABG OXYGEN SATURATION 98.9 % (95-98); ABG PH (T) 7.251 (7.350-7.450); ABG PO2 (T) 196.6 mmHg (83-108); FCOHb 0.5 % (0.5-1.5); FMetHb 0.2 % (0.3-1.12); FO2Hb 98.2 % (94-100); MINUTE VOLUME 6 L/min; PATIENT TEMPERATURE 37.3; PEEP 5 cm H2O; RESPIRATORY RATE 12 b/min; RESPIRATORY RATE (OBSERVED) 13 b/min; TIDAL VOLUME 400 mL; TOTAL HEMOGLOBIN 12.2 G/dl (12.0-16.0)
[2018-10-13 10:14] LABS: WHITE BLOOD COUNT 16.3 X10'3 (4.5-11.0)
--- NOTE | 2018-10-13 10:30 | NUR ---
OK to use [place] per
[2018-10-13] MEDS ORDERED: normal saline 1000ml 1,000 ML IV ONE ×2 (10:50)
[2018-10-13] MEDS: heparin, porcine 5000 units/ml vial SQ SCH ×2 (10:57→20:12)
[2018-10-13] MEDS: pantoprazole 40 MG vial IV SCH (10:57)
[2018-10-13] MEDS: normal saline 1000ml 1,000 ML IV SCH ×2 (11:02→20:32)
[2018-10-13] MEDS: fentaNYL/PF 50MCG/1 ML 2ML syringe IV PRN ×3 (11:03→15:59)
--- NOTE | 2018-10-13 11:58 | NUR ---
Tube feeding consult, patient has corpak in distal stomach per imaging report. Had clear liquid diet though now is discontinued. Spoke with patient at bedside and she reported to have recently lost weight d/t her tongue being "brandon" and causing pain and difficulty chewing. There is no previous documented weights though she reports weighing over 200 lbs within a year of this time. She is currently 195 lbs. Will continue to follow. Recommend: 1. Continuos tube feedings per Corpak starting at 20 ml/hr and advance by 20 ml q 8 to goal rate of 75 ml/hr using Jevity 1.2 will provide total volume 1800 ml, 2160 cals, 100 gm protein, 1453 ml free water. 2. Additional water flush 130 ml q 4 3. Daily wts 4. Prealbumin q / 5. Recommend BSS prior to diet advancement and advance diet as medically indicated to regular per HIDE OR SKIN BUFFER recs 6. monitor need for ONS when patient's diet is advanced Addendum: 10/13/18 at [address] Amended: Links added.
[2018-10-13] MEDS: piperacillin/tazo 3.375gm/50ml 50 ML IV SCH ×2 (12:00→16:35)
[2018-10-13 12:02] LABS: ALLEN'S TEST Positive
[2018-10-13 12:22] LABS: OXYGEN SATURATION (MIXED VEN) 64.2 % (60-80); PO2 MIXED VENOUS (TEMP COR) 30.8 mmHg (35-46)
[2018-10-13 13:02] LABS: PREALBUMIN 12.7 MG/DL (19-36)
[2018-10-13] MEDS ORDERED: NORepinephrine 8mg/ 250ml NS 250 ML IV SCH (13:25)
[2018-10-13 13:41] LABS: ABG BASE EXCESS -9.6 mmol/L (-2.0-3.0); ABG HCO3 15.8 mmol/L (22.0-26.0); ABG OXYGEN SATURATION 94.8 % (95-98); ABG PCO2 (T) 32.2 mmHg (32.0-45.0); ABG PH (T) 7.305 (7.350-7.450); ABG PO2 (T) 74.4 mmHg (83-108); ALLEN'S TEST Positive; FCOHb 0.3 % (0.5-1.5); FMetHb 0.3 % (0.3-1.12); FO2Hb 94.2 % (94-100); MINUTE VOLUME 8 L/min; PATIENT TEMPERATURE 36.4; PEEP 5 cm H2O; RESPIRATORY RATE 12 b/min; RESPIRATORY RATE (OBSERVED) 21 b/min; TIDAL VOLUME 400 mL; TOTAL HEMOGLOBIN 11.7 G/dl (12.0-16.0)
[2018-10-13] MEDS ORDERED: etomidate 2mg/ml inj. ONE (14:00)
[2018-10-13] MEDS ORDERED: 0.9 % SODIUM CHLORIDE 10 ML VIAL ONE (14:00)
--- NOTE | 2018-10-13 18:18 | NUR ---
Problems reprioritized. Patient report given, questions answered & plan of care reviewed with Dion BURNETTE.
[2018-10-13] MEDS ORDERED: FENTANYL-0.9 % NACL/PF 100 ML IV PRN (19:33)
[2018-10-13] MEDS ORDERED: midazolam 100mg in NS 100ml 100 ML IV PRN (19:33)
[2018-10-13] MEDS ORDERED: ipratropium/albuterol 3ml nebule NEB PRN (19:35)
[2018-10-14] VITALS (25 sets, daily range): BP systolic 84–128; BP diastolic 38–79
[2018-10-14] MEDS: piperacillin/tazo 3.375gm/50ml 50 ML IV SCH ×3 (00:26→17:09)
[2018-10-14] MEDS: methylPREDNISolone sod succ/PF 40mg inj. IV SCH ×3 (02:11→14:26)
[2018-10-14 02:46] LABS: BASOPHILS % (AUTO) 0.1 % (0-1); EOSINOPHILS % (AUTO) 0 % (0-6); HEMATOCRIT 34.2 % (35.0-45.0); HEMOGLOBIN 11.2 g/dl (12.0-16.0); LYMPHOCYTES # (AUTO) 0.4 X10'3 (1.1-4.8); LYMPHOCYTES % (AUTO) 3.1 % (21-51); MEAN CORPUSCULAR HEMOGLOBIN 27.5 PG (27.0-31.0); MEAN CORPUSCULAR HGB CONC 32.7 g/dL (33.0-36.5); MEAN CORPUSCULAR VOLUME 84.2 FL (78-98); MEAN PLATELET VOLUME 9.4 FL (7.4-10.4); MONOCYTES # (AUTO) 0.2 X10'3 (0-0.9); MONOCYTES % (AUTO) 1.3 % (2-12); NEUTROPHILS # (AUTO) 12.7 X10'3 (1.8-7.7); NEUTROPHILS % (AUTO) 95.5 % (42-75); PLATELET COUNT 201 X10'3 (140-440); RED BLOOD COUNT 4.06 X10'6 (4.20-5.60); RED CELL DISTRIBUTION WIDTH 21.3 % (11.5-14.5); WHITE BLOOD COUNT 13.4 X10'3 (4.5-11.0)
[2018-10-14 03:02] LABS: ALANINE AMINOTRANSFERASE 58 U/L (12-78); ALBUMIN 2.4 G/DL (3.4-5.0); ALBUMIN/GLOBULIN RATIO 1.1 (1.1-1.5); ALKALINE PHOSPHATASE 103 IU/L (46-116); ANION GAP 14 (8-16); ASPARTATE AMINO TRANSFERASE 74 U/L (10-37); BILIRUBIN,TOTAL 0.5 MG/DL (0.1-1.0); BLOOD UREA NITROGEN 22 MG/DL (7-18); BUN/CREATININE RATIO 22.9 (6.6-38.0); CALCIUM 7.5 MG/DL (8.5-10.1); CHLORIDE 113 MMOL/L (99-107); CREATININE 0.96 MG/DL (0.40-0.90); GLUCOSE 204 MG/DL (70-104); MAGNESIUM 1.6 MG/DL (1.5-2.4); PHOSPHORUS 1.7 MG/DL (2.3-4.5); POTASSIUM 3.7 MMOL/L (3.5-5.1); SODIUM 147 MMOL/L (135-145); TOTAL CARBON DIOXIDE 20.3 MMOL/L (24-32); TOTAL PROTEIN 4.6 G/DL (6.4-8.2); eGFR 57 ML/MIN
[2018-10-14 03:26] LABS: ANISOCYTOSIS 3+; NUCLEATED RED BLOOD CELLS 3 /100WBC (0-0); PLATELET ESTIMATE NORMAL; POLYCHROMASIA 1+; TOTAL CELLS COUNTED 100
[2018-10-14 03:29] LABS: BURR CELLS FEW; SCHISTOCYTES FEW; TARGET CELLS FEW
[2018-10-14 03:30] LABS: MICROCYTOSIS 1+
[2018-10-14 03:50] LABS: ABG BASE EXCESS -6.5 mmol/L (-2.0-3.0); ABG HCO3 15.8 mmol/L (22.0-26.0); ABG OXYGEN SATURATION 97.7 % (95-98); ABG PCO2 (T) 23.3 mmHg (32.0-45.0); ABG PO2 (T) 102.4 mmHg (83-108); FCOHb 0.7 % (0.5-1.5); FMetHb 0.1 % (0.3-1.12); FO2Hb 96.9 % (94-100); MINUTE VOLUME 10 L/min; PATIENT TEMPERATURE 36.9; PEEP 5 cm H2O; RESPIRATORY RATE 12 b/min; RESPIRATORY RATE (OBSERVED) 20 b/min; TIDAL VOLUME 450 mL; TOTAL HEMOGLOBIN 11.7 G/dl (12.0-16.0)
[2018-10-14] MEDS: levoTHYROXINE sod inj. 100mcg/5 ml vial IV SCH (07:14)
[2018-10-14] MEDS: pantoprazole 40 MG vial IV SCH (07:14)
[2018-10-14] MEDS: docusate sod 100mg capsule PO SCH ×2 (07:14→19:55)
[2018-10-14] MEDS ORDERED: dextrose 50%-water 50ml dispensing syringe IV PRN ×2 (08:10)
[2018-10-14] MEDS ORDERED: glucagon, human recombinant 1mg kit SUBCUT PRN (08:10)
[2018-10-14] MEDS ORDERED: dextrose ORAL solution 15 GM/59 ML bottle PO PRN ×2 (08:10)
[2018-10-14] MEDS ORDERED: LIDOCAINE 4% (40MG/ML) topical solution 50ml **BRONCH ONLY ONE (08:23)
[2018-10-14] MEDS ORDERED: lidocaine 2% viscous 15 ML cup ***bronch room only MM ONE (08:23)
[2018-10-14] MEDS ORDERED: epiNEPHrine 1 MG/ML 1 ml ampule **BRONCH ONLY ONE (08:23)
[2018-10-14] MEDS ORDERED: phenylephrine 1% Nasal spray (extra-strength) 15 ML bottle **bronch room NS ONE (08:23)
[2018-10-14] MEDS: sodium phosphate inj. 15 MMOL in dextrose 5%-water 150 ML IV PRN (08:29)
[2018-10-14] MEDS ORDERED: LIDOcaine 4% (40 mg/ml) topical solution 50ml MM ONE (08:40)
[2018-10-14] MEDS ORDERED: epiNEPHrine 1 mg/ml inj IR PRN (08:40)
[2018-10-14] MEDS: heparin, porcine 5000 units/ml vial SQ SCH ×2 (09:30→20:17)
[2018-10-14] MEDS: insulin regular, human vial - multi-dose SQ SCH ×3 (09:34→22:16)
[2018-10-14] MEDS ORDERED: magnesium 2GM in 50ml NS 50 ML IV PRN ×2 (10:40→20:45)
[2018-10-14] MEDS ORDERED: magnesium 4gm in 100ml NS 100 ML IV PRN ×2 (10:40→20:45)
[2018-10-14] MEDS ORDERED: potassium Cl 40MEQ/250ML bag 250 ML IV PRN ×2 (10:40)
[2018-10-14] MEDS: mineral oil/petrolatum ophthal oint EACHEYE SCH ×2 (14:26→19:55)
[2018-10-14] MEDS: normal saline 1000ml 1,000 ML IV SCH (14:27)
--- NOTE | 2018-10-14 14:55 | NUR ---
Extubation Patient was extubated from the ventilator placed on 2L NC and handled the procedure well.
--- NOTE | 2018-10-14 15:20 | NUR ---
Reassessment Noticed the patients right pupil was pinpoint and the left pupil was dilated. No other stroke symptoms noted on further assessment by me or Chela Dobbins RN. Dr. Rae notified of change ordered a CT of the head.
--- NOTE | 2018-10-14 16:05 | NUR ---
CT Patient to CT and back to ICU handled transport and procedure well.
[2018-10-14] MEDS ORDERED: mineral oil/petrolatum ophthal oint EACHEYE SCH (20:00)
[2018-10-14] MEDS ORDERED: methylPREDNISolone sod succ 125mg/2ml vial IV SCH (20:00)
[2018-10-14] MEDS: lactobacillus rhamnosus 10,000 MMU CELLS/CAPSULE PO SCH (20:17)
[2018-10-14] MEDS ORDERED: adenosine 3mg/ml 2ml vial IV ONE (20:24)
[2018-10-14] MEDS ORDERED: amiodarone 50MG/ML inj IV ONE ×2 (20:27→20:45)
[2018-10-14] MEDS ORDERED: amiodarone 150mg/dext, iso-os 100 ML IV ONE ×2 (20:28→20:48)
[2018-10-14] MEDS ORDERED: amiodarone/D5 360MG/200ML BAG 200 ML IV ONE (20:30)
[2018-10-14 21:20] LABS: ALANINE AMINOTRANSFERASE 53 U/L (12-78); ALBUMIN 2.4 G/DL (3.4-5.0); ALKALINE PHOSPHATASE 116 IU/L (46-116); ANION GAP 11 (8-16); ASPARTATE AMINO TRANSFERASE 73 U/L (10-37); BILIRUBIN,TOTAL 0.5 MG/DL (0.1-1.0); BLOOD UREA NITROGEN 21 MG/DL (7-18); BUN/CREATININE RATIO 26.3 (6.6-38.0); CALCIUM 7.1 MG/DL (8.5-10.1); CHLORIDE 111 MMOL/L (99-107); GLUCOSE 185 MG/DL (70-104); MAGNESIUM 1.6 MG/DL (1.5-2.4); PHOSPHORUS 1.8 MG/DL (2.3-4.5); POTASSIUM 3.6 MMOL/L (3.5-5.1); SODIUM 146 MMOL/L (135-145); TOTAL CARBON DIOXIDE 23.7 MMOL/L (24-32); TOTAL PROTEIN 4.7 G/DL (6.4-8.2); eGFR 70 ML/MIN
[2018-10-14] MEDS: methylPREDNISolone sod succ 125mg/2ml vial IV SCH (21:57)
[2018-10-14] MEDS: insulin glargine (Lantus) pen - multi-dose SQ SCH (22:15)
[2018-10-14] MEDS: amiodarone/D5 360MG/200ML BAG 200 ML IV SCH (22:54)
[2018-10-15] VITALS (21 sets, daily range): BP systolic 96–124; BP diastolic 45–77
[2018-10-15] MEDS: piperacillin/tazo 3.375gm/50ml 50 ML IV SCH ×4 (00:12→23:16)
[2018-10-15] MEDS: amiodarone/D5 360MG/200ML BAG 200 ML IV SCH ×5 (00:14→23:05)
[2018-10-15] MEDS: HYDROcodone/acetaminophen 10/325mg tab PO PRN ×3 (01:11→23:04)
[2018-10-15] MEDS: mineral oil/petrolatum ophthal oint EACHEYE SCH ×4 (01:21→20:18)
[2018-10-15] MEDS: sodium phosphate inj. 15 MMOL in dextrose 5%-water 150 ML IV PRN (02:16)
[2018-10-15] MEDS: methylPREDNISolone sod succ 125mg/2ml vial IV SCH ×4 (02:20→20:17)
[2018-10-15] MEDS: insulin regular, human vial - multi-dose SQ SCH ×4 (03:32→20:46)
[2018-10-15 04:28] LABS: BASOPHILS % (AUTO) 0 % (0-1); EOSINOPHILS % (AUTO) 0 % (0-6); HEMATOCRIT 34.5 % (35.0-45.0); HEMOGLOBIN 11.2 g/dl (12.0-16.0); LYMPHOCYTES # (AUTO) 0.5 X10'3 (1.1-4.8); LYMPHOCYTES % (AUTO) 3.1 % (21-51); MEAN CORPUSCULAR HEMOGLOBIN 27.2 PG (27.0-31.0); MEAN CORPUSCULAR HGB CONC 32.4 g/dL (33.0-36.5); MEAN CORPUSCULAR VOLUME 83.9 FL (78-98); MEAN PLATELET VOLUME 9.8 FL (7.4-10.4); MONOCYTES # (AUTO) 0.2 X10'3 (0-0.9); MONOCYTES % (AUTO) 1.6 % (2-12); NEUTROPHILS # (AUTO) 13.7 X10'3 (1.8-7.7); NEUTROPHILS % (AUTO) 95.3 % (42-75); PLATELET COUNT 217 X10'3 (140-440); RED BLOOD COUNT 4.12 X10'6 (4.20-5.60); RED CELL DISTRIBUTION WIDTH 20.8 % (11.5-14.5); WHITE BLOOD COUNT 14.3 X10'3 (4.5-11.0)
[2018-10-15 04:41] LABS: ALANINE AMINOTRANSFERASE 51 U/L (12-78); ALBUMIN 2.3 G/DL (3.4-5.0); ALKALINE PHOSPHATASE 109 IU/L (46-116); ANION GAP 10 (8-16); ASPARTATE AMINO TRANSFERASE 55 U/L (10-37); BILIRUBIN,TOTAL 0.4 MG/DL (0.1-1.0); BLOOD UREA NITROGEN 19 MG/DL (7-18); BUN/CREATININE RATIO 21.8 (6.6-38.0); CHLORIDE 112 MMOL/L (99-107); CREATININE 0.87 MG/DL (0.40-0.90); GLUCOSE 162 MG/DL (70-104); MAGNESIUM 1.4 MG/DL (1.5-2.4); PHOSPHORUS 2.2 MG/DL (2.3-4.5); POTASSIUM 3.1 MMOL/L (3.5-5.1); SODIUM 147 MMOL/L (135-145); TOTAL CARBON DIOXIDE 25.1 MMOL/L (24-32); TOTAL PROTEIN 4.7 G/DL (6.4-8.2); eGFR 64 ML/MIN
[2018-10-15 04:48] LABS: ANISOCYTOSIS 3+; PLATELET ESTIMATE NORMAL
[2018-10-15 04:51] LABS: POLYCHROMASIA FEW; SCHISTOCYTES FEW; TARGET CELLS FEW
[2018-10-15 05:24] LABS: ANTINUCLEAR ANTIBODIES Negative (Negative); COMPLEMENT C3, SERUM 53 mg/dL (82-167); COMPLEMENT C4, SERUM 13 mg/dL (14-44)
--- NOTE | 2018-10-15 06:15 | NUR ---
Patient in room ICU 2043. I have received report from VASILE Ashley and had the opportunity to ask questions and assume patient care.
--- NOTE | 2018-10-15 06:27 | NUR ---
pt had experienced SVt around 2039, hr aound 170-190's. bp was normal. RHEOSTAT ASSEMBLER Goldie, ordered meds to slow hr. pt corrected to NSR within an 30 mins and maintained a normal rhythm rest of the shift. amiodarone maintenance drip infusing.
[2018-10-15] MEDS: K and/or MAG REPLACEMENT MC SCH (06:28)
[2018-10-15] MEDS: docusate sod 100mg capsule PO SCH ×2 (06:29→20:18)
[2018-10-15] MEDS: normal saline 1000ml 1,000 ML IV SCH ×2 (06:42→15:35)
[2018-10-15] MEDS: levoTHYROXINE sod inj. 100mcg/5 ml vial IV SCH (07:04)
[2018-10-15] MEDS: heparin, porcine 5000 units/ml vial SQ SCH ×2 (07:05→20:17)
[2018-10-15] MEDS: pantoprazole 40 MG vial IV SCH (07:05)
[2018-10-15] MEDS: lactobacillus rhamnosus 10,000 MMU CELLS/CAPSULE PO SCH ×2 (07:05→20:18)
[2018-10-15] MEDS: QUEtiapine 25mg tablet PO SCH ×2 (15:29→20:18)
[2018-10-15 16:29] LABS: MAGNESIUM 1.7 MG/DL (1.5-2.4); PHOSPHORUS 2.7 MG/DL (2.3-4.5); POTASSIUM 3.5 MMOL/L (3.5-5.1)
--- NOTE | 2018-10-15 17:00 | NUR ---
Problems reprioritized. Patient report given, questions answered & plan of care reviewed with Art, RN in ACCE unit.
--- NOTE | 2018-10-15 18:30 | NUR ---
Patient in room MED 316. I have received report from Art RN and had the opportunity to ask questions and assume patient care. at bedside, pt lying in bed, in no distress/pain at this time.
--- NOTE | 2018-10-15 18:38 | NUR ---
Problems reprioritized. Patient report given, questions answered & plan of care reviewed with Micheline BURNETTE.
--- NOTE | 2018-10-15 18:45 | NUR ---
Problems reprioritized. Patient report given, questions answered & plan of care reviewed with Michelle BURNETTE.
--- NOTE | 2018-10-15 18:51 | NUR ---
PLaced order for CXR r/t chest tube placement. PAge sent to radiology for STAT single view CXR at this time.
--- NOTE | 2018-10-15 19:17 | NUR ---
called Dr Evans re pt's pericardial drain being dislodged, bore holes are exposed and dressing saturated, still draining however, pt asymptomatic and VSS. per Dr Evans, ok to leave drain as is for now, watch VS, check breath sounds freq and reinforce dressing. will continue to monitor.
--- NOTE | 2018-10-15 20:00 | NUR ---
Dr Evans at bedside to assess pt's CT site, pulled slightly and CT dislodged completely. suture placed and occlusive gauze dressing over insertion site. no new drainage out since shift change. will get CXR in AM, CT Dc'd at this time.
[2018-10-15] MEDS: insulin glargine (Lantus) pen - multi-dose SQ SCH (20:48)
[2018-10-15] MEDS: risperiDONE 0.25mg tablet PO SCH (21:27)
[2018-10-16] VITALS (23 sets, daily range): BP systolic 85–115; BP diastolic 43–68
[2018-10-16] MEDS: mineral oil/petrolatum ophthal oint EACHEYE SCH ×2 (01:50→08:00)
[2018-10-16] MEDS: methylPREDNISolone sod succ 125mg/2ml vial IV SCH ×4 (02:08→20:22)
[2018-10-16] MEDS: insulin regular, human vial - multi-dose SQ SCH ×3 (02:41→20:37)
[2018-10-16] MEDS: HYDROcodone/acetaminophen 10/325mg tab PO PRN (03:15)
[2018-10-16 03:28] LABS: ALANINE AMINOTRANSFERASE 42 U/L (12-78); ALBUMIN/GLOBULIN RATIO 0.8 (1.1-1.5); ALKALINE PHOSPHATASE 105 IU/L (46-116); ANION GAP 8 (8-16); ASPARTATE AMINO TRANSFERASE 32 U/L (10-37); BILIRUBIN,TOTAL 0.3 MG/DL (0.1-1.0); BLOOD UREA NITROGEN 21 MG/DL (7-18); BUN/CREATININE RATIO 29.2 (6.6-38.0); CALCIUM 7.1 MG/DL (8.5-10.1); CHLORIDE 111 MMOL/L (99-107); CREATININE 0.72 MG/DL (0.40-0.90); GLUCOSE 178 MG/DL (70-104); MAGNESIUM 1.7 MG/DL (1.5-2.4); PHOSPHORUS 2.6 MG/DL (2.3-4.5); POTASSIUM 3.6 MMOL/L (3.5-5.1); SODIUM 145 MMOL/L (135-145); TOTAL CARBON DIOXIDE 25.6 MMOL/L (24-32); TOTAL PROTEIN 4.5 G/DL (6.4-8.2); eGFR 79 ML/MIN
[2018-10-16 03:31] LABS: BASOPHILS % (AUTO) 0 % (0-1); EOSINOPHILS % (AUTO) 0 % (0-6); HEMATOCRIT 34.7 % (35.0-45.0); HEMOGLOBIN 11.4 g/dl (12.0-16.0); LYMPHOCYTES # (AUTO) 0.5 X10'3 (1.1-4.8); LYMPHOCYTES % (AUTO) 3.8 % (21-51); MEAN CORPUSCULAR HEMOGLOBIN 27.8 PG (27.0-31.0); MEAN CORPUSCULAR HGB CONC 32.8 g/dL (33.0-36.5); MEAN CORPUSCULAR VOLUME 84.9 FL (78-98); MEAN PLATELET VOLUME 9.9 FL (7.4-10.4); MONOCYTES # (AUTO) 0.2 X10'3 (0-0.9); MONOCYTES % (AUTO) 1.1 % (2-12); NEUTROPHILS # (AUTO) 13.3 X10'3 (1.8-7.7); NEUTROPHILS % (AUTO) 95.1 % (42-75); PLATELET COUNT 182 X10'3 (140-440); RED BLOOD COUNT 4.08 X10'6 (4.20-5.60); RED CELL DISTRIBUTION WIDTH 21.3 % (11.5-14.5)
[2018-10-16 03:44] LABS: ANISOCYTOSIS 3+; NUCLEATED RED BLOOD CELLS 2 /100WBC (0-0); PLATELET ESTIMATE NORMAL; TOTAL CELLS COUNTED 100
[2018-10-16 03:45] LABS: SCHISTOCYTES FEW
[2018-10-16 03:46] LABS: POLYCHROMASIA 1+
[2018-10-16] MEDS: normal saline 1000ml 1,000 ML IV SCH ×2 (05:30→18:50)
[2018-10-16] MEDS: K and/or MAG REPLACEMENT MC SCH (08:00)
[2018-10-16] MEDS: docusate sod 100mg capsule PO SCH ×2 (08:00→20:00)
--- NOTE | 2018-10-16 08:38 | NUR ---
ATTEMPTED TO CALL DR WOLFE TO INFORM ABOUT POSITIVE MDRO SPUTUM, YANETH IN SURGERY AT THIS TIME. WILL ATTEMPT TO CALL DR. BONILLA TO REPORT CRITICAL MICRO
--- NOTE | 2018-10-16 08:44 | NUR ---
ATTEMPTED TO CALL DR. BONILLA TO REPORT CRITCAL MICRO RESULT + MDRO IN SPUTUM. WILL CONTINUE TO ATTEMPT MD CONTACT
--- NOTE | 2018-10-16 08:50 | NUR ---
DR. BONILLA CALLED BACK. NO NEW ORDERS RECEIVED REGARDING + MDRO IN SPUTUM
[2018-10-16] MEDS: QUEtiapine 25mg tablet PO SCH ×2 (08:57→20:20)
[2018-10-16] MEDS: heparin, porcine 5000 units/ml vial SQ SCH ×2 (08:57→20:31)
[2018-10-16] MEDS: lactobacillus rhamnosus 10,000 MMU CELLS/CAPSULE PO SCH ×2 (08:57→20:20)
[2018-10-16] MEDS: pantoprazole 40 MG vial IV SCH (08:58)
[2018-10-16] MEDS: levoTHYROXINE sod inj. 100mcg/5 ml vial IV SCH (08:58)
[2018-10-16] MEDS ORDERED: LIDOcaine 1%/PF 5ML 10 MG/ML VIAL ONE (10:00)
[2018-10-16] MEDS: piperacillin/tazo 3.375gm/50ml 50 ML IV SCH ×2 (10:54→16:10)
[2018-10-16] MEDS: amiodarone/D5 360MG/200ML BAG 200 ML IV SCH ×3 (10:58→20:45)
[2018-10-16 11:31] LABS: BFSOURCE LEFT PLEURAL FLD; PLEURAL FLUID PH 7.444 (7.63-7.65)
[2018-10-16 11:48] LABS: LDH,BODY FLUID 108 U/L
[2018-10-16 12:04] LABS: TOTAL PROTEIN,BODY FLUID < 2.0 G/DL
--- NOTE | 2018-10-16 12:09 | NUR ---
Reassessment: Patient's Killian score now 12, pt documented as A/O x2 and confused, protein ed not appropriate at this time. Pt continues with TF at goal rate and tolerating with no residuals. Pt seen by SHOPPER'S AIDE 10/16 who states pt is tolerating pureed diet with no aspiration. Noted that pt with an active clear liquid and pureed diet, d/w RN to d/c clear liquid diet. Patient's first meal on pureed diet 75%, recommend continuing TF until pt has had a few more meals with intake greater than 65% to ensure that pt is able to meet nutrient needs with PO intake. Pt with chest tube with 1400 cc out per MD progress notes. LBM 10/15. Will continue to follow. Recommend: 1. Continuous tube feedings per Corpak starting at 20 ml/hr and advance by 20 ml q 8 to goal rate of 75 ml/hr using Jevity 1.2 will provide total volume 1800 ml, 2160 cals, 100 gm protein, 1453 ml free water. 2. Additional water flush 130 ml q 4 3. Daily wts 4. Prealbumin q / 5. Continue with pureed diet with thin liquids per SHOPPER'S AIDE 6. monitor need for ONS Addendum: 10/16/18 at [address] Amended: Links added.
[2018-10-16 16:58] LABS: BF WBC COUNT 66 /CU MM (0-1000); BFAPPEAR CLOUDY; BFCOLOR PINK; BFVOLUME 60 ML
[2018-10-16 16:59] LABS: BF RBC COUNT 9150 /CU MM
[2018-10-16 17:01] LABS: LYMPHOCYTES,BODY FLUID 19 %; MONOCYTES,BODY FLUID 1 %; NEUTROPHILS,BODY FLUID 80 %
[2018-10-16 17:02] LABS: BF MESOTHELIAL CELLS OCCASIONAL
--- NOTE | 2018-10-16 17:34 | NUR ---
MRI TEAM INFORMED THAT PATIENT CANNOT HAVE MRI DUE TO AMIO GTT. CALLED DR. WOLFE AND INFORMED BY MD INFORMED HE WAS NOT THE ONE TO ORDER AMIO GTT CALLED DR. BONILLA, NEW ORDER RECEIVED D/C AMIO GTT
--- NOTE | 2018-10-16 18:20 | NUR ---
Patient in room MED 316. I have received report from Asif and had the opportunity to ask questions and assume patient care.
--- NOTE | 2018-10-16 18:30 | NUR ---
Problems reprioritized. Patient report given, questions answered & plan of care reviewed with Pelon BURNETTE.
--- NOTE | 2018-10-16 19:19 | NUR ---
called MRI and no answer. Sent page to MRI requesting they come spanish moss picker patient to complete order from MD knox. patients amio gtt is off at this time and patient is ready for MRI. Waiting for call back
--- NOTE | 2018-10-16 19:30 | NUR ---
call placed again to MRI. no answer.
--- NOTE | 2018-10-16 20:00 | NUR ---
Third attempt to reach MRI. no call back and no answer.
[2018-10-16] MEDS: risperiDONE 0.25mg tablet PO SCH (20:20)
--- NOTE | 2018-10-16 20:30 | NUR ---
Called MRI and radiology(to find MRI) to schedule time for patient scan; no reply
--- NOTE | 2018-10-16 20:37 | NUR ---
called video presentation operator refinery operator crude unit r/t patient going from SR to SVT rate between 90 and 170. Left VM stating that the patient was taken off of an amio gtt this am and no PO was started and requesting new medication orders. Awaiting call back at this time.
[2018-10-16] MEDS: insulin glargine (Lantus) pen - multi-dose SQ SCH (20:40)
--- NOTE | 2018-10-16 20:51 | NUR ---
received new order from LIZY Love- restart Amio gtt on maintenance dose- no need for re-bolus r/t amio not being off for over 24 hours- then start PO amio tomorrow. Primary RN aware. Patient is now unable, again, to have MRI completed r/t need for a gtt.
[2018-10-17] VITALS (7 sets, daily range): BP systolic 110–124; BP diastolic 55–78
[2018-10-17] MEDS: piperacillin/tazo 3.375gm/50ml 50 ML IV SCH ×3 (00:26→16:18)
[2018-10-17] MEDS: methylPREDNISolone sod succ 125mg/2ml vial IV SCH ×4 (02:20→21:22)
[2018-10-17] MEDS: insulin regular, human vial - multi-dose SQ SCH (02:38)
[2018-10-17] MEDS: amiodarone/D5 360MG/200ML BAG 200 ML IV SCH ×3 (03:08→14:57)
[2018-10-17] MEDS: HYDROcodone/acetaminophen 10/325mg tab PO PRN (04:21)
[2018-10-17 05:57] LABS: BASOPHILS % (AUTO) 0 % (0-1); EOSINOPHILS # (AUTO) 0.2 X10'3 (0-0.9); EOSINOPHILS % (AUTO) 1.5 % (0-6); HEMATOCRIT 33.1 % (35.0-45.0); HEMOGLOBIN 10.7 g/dl (12.0-16.0); LYMPHOCYTES # (AUTO) 0.4 X10'3 (1.1-4.8); LYMPHOCYTES % (AUTO) 2.9 % (21-51); MEAN CORPUSCULAR HEMOGLOBIN 27.6 PG (27.0-31.0); MEAN CORPUSCULAR HGB CONC 32.2 g/dL (33.0-36.5); MEAN CORPUSCULAR VOLUME 85.5 FL (78-98); MEAN PLATELET VOLUME 10.6 FL (7.4-10.4); MONOCYTES # (AUTO) 0.2 X10'3 (0-0.9); MONOCYTES % (AUTO) 1.7 % (2-12); NEUTROPHILS # (AUTO) 11.4 X10'3 (1.8-7.7); NEUTROPHILS % (AUTO) 93.9 % (42-75); PLATELET COUNT 173 X10'3 (140-440); RED BLOOD COUNT 3.87 X10'6 (4.20-5.60); RED CELL DISTRIBUTION WIDTH 21.7 % (11.5-14.5); WHITE BLOOD COUNT 12.2 X10'3 (4.5-11.0)
--- NOTE | 2018-10-17 06:15 | NUR ---
Patient in room MED 310. I have received report from Edvin Caraballo RN and had the opportunity to ask questions and assume patient care.
[2018-10-17 06:18] LABS: ALANINE AMINOTRANSFERASE 34 U/L (12-78); ALBUMIN 1.7 G/DL (3.4-5.0); ALBUMIN/GLOBULIN RATIO 0.7 (1.1-1.5); ALKALINE PHOSPHATASE 91 IU/L (46-116); ANION GAP 7 (8-16); ASPARTATE AMINO TRANSFERASE 28 U/L (10-37); BILIRUBIN,DIRECT 0.1 MG/DL (0-0.3); BILIRUBIN,TOTAL 0.3 MG/DL (0.1-1.0); BLOOD UREA NITROGEN 24 MG/DL (7-18); BUN/CREATININE RATIO 35.3 (6.6-38.0); CALCIUM 7.1 MG/DL (8.5-10.1); CHLORIDE 111 MMOL/L (99-107); CREATININE 0.68 MG/DL (0.40-0.90); GLUCOSE 87 MG/DL (70-104); MAGNESIUM 1.7 MG/DL (1.5-2.4); PHOSPHORUS 2.5 MG/DL (2.3-4.5); POTASSIUM 3.6 MMOL/L (3.5-5.1); SODIUM 146 MMOL/L (135-145); TOTAL CARBON DIOXIDE 28.2 MMOL/L (24-32); TOTAL PROTEIN 4.1 G/DL (6.4-8.2); eGFR 85 ML/MIN
--- NOTE | 2018-10-17 06:20 | NUR ---
Problems reprioritized. Patient report given, questions answered & plan of care reviewed with Rosas.
[2018-10-17 06:38] LABS: PLATELET ESTIMATE NORMAL; TOTAL CELLS COUNTED 100
[2018-10-17 06:40] LABS: ANISOCYTOSIS 3+; HYPOCHROMASIA 1+; LARGE PLATELETS FEW; POLYCHROMASIA 1+; SCHISTOCYTES FEW; TARGET CELLS 1+
[2018-10-17 06:47] LABS: HYPERSEGMENTED NEUTROPHILS 1+
[2018-10-17] MEDS: amiodarone 200mg tablet PO SCH (07:53)
[2018-10-17] MEDS: QUEtiapine 25mg tablet PO SCH ×2 (07:53→21:24)
[2018-10-17] MEDS: pantoprazole 40 MG vial IV SCH (07:53)
[2018-10-17] MEDS: levoTHYROXINE sod inj. 100mcg/5 ml vial IV SCH (07:53)
[2018-10-17] MEDS: lactobacillus rhamnosus 10,000 MMU CELLS/CAPSULE PO SCH ×2 (07:53→21:26)
[2018-10-17] MEDS: heparin, porcine 5000 units/ml vial SQ SCH ×2 (07:54→21:22)
[2018-10-17] MEDS: docusate sod 100mg capsule PO SCH ×2 (08:00→20:00)
[2018-10-17] MEDS: K and/or MAG REPLACEMENT MC SCH (10:06)
[2018-10-17] MEDS: normal saline 1000ml 1,000 ML IV SCH ×2 (10:06→21:30)
--- NOTE | 2018-10-17 12:46 | NUR ---
DR. BONILLA AT BEDSIDE. NEW ORDERS RECEIVED: D/C NG TUBE, CONTINUE PO INTAKE, KEEP AMIO GTT OFF. DAUGHTER FROM [place] COMING TO SEE PATIENT. PLAN IS FOR PATIENT TO D/C ON COMFORT CARE / HOSPICE. WILL CONTINUE TO MONITOR.
--- NOTE | 2018-10-17 12:47 | NUR ---
PER IRENE MAGANA TO TRANSFER TO SURGICAL NO TELE MONITORING
--- NOTE | 2018-10-17 18:00 | NUR ---
pt came to floor at 1800
--- NOTE | 2018-10-17 18:10 | NUR ---
Problems reprioritized. Patient report given, questions answered & plan of care reviewed with Kirill BURNETTE.
--- NOTE | 2018-10-17 19:00 | NUR ---
Patient in room MIRIAM 353. I have received report from Amy BURNETTE and had the opportunity to ask questions and assume patient care. Patient just arrive to floor, Chest tube, rectal tube, and IV intact. Will continue to monitor.
--- NOTE | 2018-10-17 19:16 | NUR ---
GAVE REPORT TO CHARLENE BURNETTE
[2018-10-17] MEDS: insulin glargine (Lantus) pen - multi-dose SQ SCH (21:00)
--- NOTE | 2018-10-17 21:11 | NUR ---
Spoke to September DIRECTOR OF FEDERAL SALES who states that due to patient not having blood sugar treatment throughout day, NG removed and decreased appetite. Patient will need to re-meet protocol with either with consecutive blood sugars over 160 or 1 over 200. Also states okay to discontinue amiodarone drip. Will continue to monitor.
[2018-10-17] MEDS: risperiDONE 0.25mg tablet PO SCH (21:23)
[2018-10-18] VITALS: BP 124/77
[2018-10-18] MEDS: piperacillin/tazo 3.375gm/50ml 50 ML IV SCH ×4 (00:16→23:50)
[2018-10-18] MEDS: methylPREDNISolone sod succ 125mg/2ml vial IV SCH ×4 (02:32→20:13)
--- NOTE | 2018-10-18 06:30 | NUR ---
Problems reprioritized. Patient report given, questions answered & plan of care reviewed with Xochilt BURNETTE. Patient resting in bed respirations even.
--- NOTE | 2018-10-18 06:57 | NUR ---
Patient in room MIRIAM 353. I have received report from VASILE Blas and had the opportunity to ask questions and assume patient care.
[2018-10-18 07:25] LABS: ALANINE AMINOTRANSFERASE 28 U/L (12-78); ALBUMIN 1.7 G/DL (3.4-5.0); ALBUMIN/GLOBULIN RATIO 0.7 (1.1-1.5); ALKALINE PHOSPHATASE 91 IU/L (46-116); ANION GAP 9 (8-16); ASPARTATE AMINO TRANSFERASE 28 U/L (10-37); BILIRUBIN,TOTAL 0.5 MG/DL (0.1-1.0); BLOOD UREA NITROGEN 24 MG/DL (7-18); BUN/CREATININE RATIO 34.8 (6.6-38.0); CHLORIDE 111 MMOL/L (99-107); CREATININE 0.69 MG/DL (0.40-0.90); GLUCOSE 138 MG/DL (70-104); MAGNESIUM 1.5 MG/DL (1.5-2.4); PHOSPHORUS 2.7 MG/DL (2.3-4.5); POTASSIUM 3.3 MMOL/L (3.5-5.1); SODIUM 145 MMOL/L (135-145); TOTAL CARBON DIOXIDE 24.9 MMOL/L (24-32); TOTAL PROTEIN 4.1 G/DL (6.4-8.2); eGFR 83 ML/MIN
[2018-10-18 07:59] LABS: BASOPHILS % (AUTO) 0.1 % (0-1); EOSINOPHILS # (AUTO) 0.1 X10'3 (0-0.9); EOSINOPHILS % (AUTO) 1.3 % (0-6); HEMATOCRIT 33.8 % (35.0-45.0); HEMOGLOBIN 10.8 g/dl (12.0-16.0); LYMPHOCYTES # (AUTO) 0.3 X10'3 (1.1-4.8); LYMPHOCYTES % (AUTO) 3.6 % (21-51); MEAN CORPUSCULAR HEMOGLOBIN 27.5 PG (27.0-31.0); MEAN PLATELET VOLUME 10.5 FL (7.4-10.4); MONOCYTES # (AUTO) 0.2 X10'3 (0-0.9); MONOCYTES % (AUTO) 2.7 % (2-12); NEUTROPHILS # (AUTO) 8.5 X10'3 (1.8-7.7); NEUTROPHILS % (AUTO) 92.3 % (42-75); PLATELET COUNT 165 X10'3 (140-440); RED BLOOD COUNT 3.93 X10'6 (4.20-5.60); RED CELL DISTRIBUTION WIDTH 21.6 % (11.5-14.5); WHITE BLOOD COUNT 9.2 X10'3 (4.5-11.0)
[2018-10-18 08:00] VITALS: BP 133/76
[2018-10-18] MEDS: docusate sod 100mg capsule PO SCH ×3 (08:00→20:00)
[2018-10-18] MEDS: QUEtiapine 25mg tablet PO SCH ×2 (08:13→20:13)
[2018-10-18] MEDS: levoTHYROXINE sod inj. 100mcg/5 ml vial IV SCH (08:13)
[2018-10-18] MEDS: amiodarone 200mg tablet PO SCH (08:13)
[2018-10-18] MEDS: pantoprazole 40 MG vial IV SCH (08:13)
[2018-10-18] MEDS: lactobacillus rhamnosus 10,000 MMU CELLS/CAPSULE PO SCH ×2 (08:13→20:13)
[2018-10-18] MEDS: heparin, porcine 5000 units/ml vial SQ SCH ×2 (08:14→20:14)
[2018-10-18] MEDS: normal saline 1000ml 1,000 ML IV SCH (10:50)
[2018-10-18 11:30] VITALS: BP 121/74
[2018-10-18 13:07] LABS: LARGE PLATELETS FEW; PLATELET ESTIMATE NORMAL; POLYCHROMASIA FEW
[2018-10-18 13:08] LABS: ANISOCYTOSIS 3+; SCHISTOCYTES FEW
--- NOTE | 2018-10-18 15:06 | NUR ---
Dr Bender discussed code status and comfort care with the pt's daughter and daughter's , with myself, the primary RN present. The family members expressed desire for the pt to be comfort care and DNR status. Dr Bender agreed that the pt should be comfort care and stated that he would initiate comfort care measures. I paged case management to come and discuss hospice and what their options might be. I contacted Candida MAGUIRE regarding the patient's code status and received an order to change the patient's code status from full to DNR. Evi BURNETTE was witness to our conversation and heard Candida verbalize on the phone to change the patient's code status to DNR. A DNR wristband will be placed on the pt.
[2018-10-18 18:00] VITALS: BP 142/75
--- NOTE | 2018-10-18 18:35 | NUR ---
Patient in room MIRIAM 353. I have received report from Xochilt BURNETTE and had the opportunity to ask questions and assume patient care.
--- NOTE | 2018-10-18 18:36 | NUR ---
Problems reprioritized. Patient report given, questions answered & plan of care reviewed with VASILE Valadez.
[2018-10-18] MEDS: risperiDONE 0.25mg tablet PO SCH (20:13)
[2018-10-18] MEDS: insulin glargine (Lantus) pen - multi-dose SQ SCH (21:00)
[2018-10-18] MEDS: HYDROcodone/acetaminophen 10/325mg tab PO PRN (22:09)
[2018-10-19] MEDS: methylPREDNISolone sod succ 125mg/2ml vial IV SCH ×2 (01:03→08:42)
[2018-10-19] MEDS: HYDROcodone/acetaminophen 10/325mg tab PO PRN (05:59)
--- NOTE | 2018-10-19 06:32 | NUR ---
Patient in room MIRIAM 353. I have received report from VASILE Valadez and had the opportunity to ask questions and assume patient care.
--- NOTE | 2018-10-19 06:32 | NUR ---
Problems reprioritized. Patient report given, questions answered & plan of care reviewed with Segundo BURNETTE.
[2018-10-19 07:44] VITALS: BP 140/77
[2018-10-19] MEDS: docusate sod 100mg capsule PO SCH (08:00)
[2018-10-19] MEDS: levoTHYROXINE sod inj. 100mcg/5 ml vial IV SCH (08:42)
[2018-10-19] MEDS: QUEtiapine 25mg tablet PO SCH ×2 (08:42→19:44)
[2018-10-19] MEDS: lactobacillus rhamnosus 10,000 MMU CELLS/CAPSULE PO SCH ×2 (08:42→19:44)
[2018-10-19] MEDS: pantoprazole 40 MG vial IV SCH (08:42)
[2018-10-19] MEDS: amiodarone 200mg tablet PO SCH (08:42)
[2018-10-19] MEDS: piperacillin/tazo 3.375gm/50ml 50 ML IV SCH (08:42)
[2018-10-19] MEDS: heparin, porcine 5000 units/ml vial SQ SCH (08:42)
[2018-10-19] MEDS ORDERED: ondansetron 4mg rapidly disintigrating tab PO PRN (10:40)
[2018-10-19] MEDS ORDERED: LORazepam 0.5 MG tablet PO PRN (11:50)
[2018-10-19] MEDS: scopolamine 1.5mg patch.TD72 TD SCH (13:02)
--- NOTE | 2018-10-19 13:40 | NUR ---
Right intrajugular central line DC'd per Candida MAGUIRE. Pt tolerated well, cannula intact. Pressure held for 3 minutes. No bleeding noted. Dressing applied using 4x4 gauze and tegaderm.
--- NOTE | 2018-10-19 15:45 | NUR ---
Pt has been made Palliative/comfort care. Will continue to follow per protocol. TF held at this time. Addendum: 10/19/18 at [address] Amended: Links added.
--- NOTE | 2018-10-19 18:06 | NUR ---
Problems reprioritized. Patient report given, questions answered & plan of care reviewed with VASILE Slater.
[2018-10-19] MEDS: risperiDONE 0.25mg tablet PO SCH (19:44)
[2018-10-19 20:00] VITALS: BP 117/76
--- NOTE | 2018-10-19 22:25 | NUR ---
Patient in room MIRIAM 353. I have received report from VASILE Lemon and had the opportunity to ask questions and assume patient care. Addendum: 10/19/18 at 2234 by Nohemy German RN Amended: Links added.
--- NOTE | 2018-10-20 06:15 | NUR ---
Patient in room MIRIAM 353. I have received report from VASILE Mclaughlin and had the opportunity to ask questions and assume patient care.
--- NOTE | 2018-10-20 06:21 | NUR ---
Problems reprioritized. Patient report given, questions answered & plan of care reviewed with VASILE Weathers. Addendum: 10/20/18 at 0621 by Nohemy German RN Amended: Links added.
[2018-10-20] MEDS ORDERED: levoTHYROXINE 25mcg tablet PO SCH (07:00)
[2018-10-20] MEDS ORDERED: pantoprazole 40mg Tablet.DR PO SCH (07:30)
[2018-10-20] MEDS ORDERED: predniSONE 20 mg tablet PO SCH (08:00)
--- NOTE | 2018-10-20 09:19 | NUR ---
Patient is slow to respond but speaks clearly and briefly Addendum: 10/20/18 at 5245 by Jeannette CHATMAN Amended: Links added.
[2018-10-20] MEDS: lactobacillus rhamnosus 10,000 MMU CELLS/CAPSULE PO SCH (09:25)
[2018-10-20] MEDS: amiodarone 200mg tablet PO SCH (09:25)
--- NOTE | 2018-10-20 09:25 | NUR ---
Low tone rub heard throughout anterior during the end of inspiration and beginning of expiration Addendum: 10/20/18 at 0929 by Jeannette CHATMAN Amended: Links added.
[2018-10-20] MEDS: QUEtiapine 25mg tablet PO SCH (09:26)
[2018-10-20 09:49] VITALS: BP 119/60
[2018-10-20 11:00] VITALS: BP 70/22
--- NOTE | 2018-10-20 18:10 | NUR ---
Problems reprioritized. Patient report given, questions answered & plan of care reviewed with VASILE Mclaughlin. Patient resting comfortably at this time. Call light and itmes of frequent use in reach of patient.
--- NOTE | 2018-10-20 19:48 | NUR ---
Patient in room MIRIAM 353. I have received report from VASILE Weathers and had the opportunity to ask questions and assume patient care. Addendum: 10/20/18 at 1950 by Nohemy German RN Amended: Links added.
[2018-10-20 20:00] VITALS: BP 109/74
--- NOTE | 2018-10-21 06:00 | NUR ---
Problems reprioritized. Patient report given, questions answered & plan of care reviewed with VASILE Weathers. Addendum: 10/21/18 at 0600 by Nohemy German RN Amended: Links added.
--- NOTE | 2018-10-21 06:18 | NUR ---
Patient in room MIRIAM 353. I have received report from VASILE Slater and had the opportunity to ask questions and assume patient care. Patient awake and comfortably at this time. Call light and items of frequent use in reach of patient.
[2018-10-21 07:00] VITALS: BP 113/74
--- NOTE | 2018-10-21 09:27 | NUR ---
A women named Emilee called to get an update on patient. Emilee claims to be a friend not family. Patient states that she does not know who she is and did not want to talk to her. Emilee left her number incase patient remembers and does want to talk to her. Emilee .
[2018-10-21] MEDS: morphine 10mg/0.5ml (conc. morphine) oral syringe PO PRN (09:34)
--- NOTE | 2018-10-21 18:23 | NUR ---
Problems reprioritized. Patient report given, questions answered & plan of care reviewed with VASILE Mclaughlin. Patient comfortable at this time. Call light and items of frequent use in reach of patient.
--- NOTE | 2018-10-21 19:43 | NUR ---
Patient in room MIRIAM 353. I have received report from VASILE Weathers and had the opportunity to ask questions and assume patient care. Addendum: 10/21/18 at 1944 by Nohemy German RN Amended: Links added.
[2018-10-21 20:00] VITALS: BP 107/62
[2018-10-22 08:15] VITALS: BP 120/63
--- NOTE | 2018-10-22 09:20 | NUR ---
Problems reprioritized. Patient report given, questions answered & plan of care reviewed with VASILE Taylor. Addendum: 10/22/18 at 0920 by Nohemy German RN Amended: Links added.
--- NOTE | 2018-10-22 16:55 | NUR ---
Received report from VASILE Taylor. Patient is awake and alert on room air, in no apparent distress. Call light and items of frequent use within reach. Will continue to monitor.
--- NOTE | 2018-10-22 17:03 | NUR ---
Problems reprioritized. Patient report given, questions answered & plan of care reviewed with Darya. Addendum: 10/22/18 at 1704 by Claudia Krishnamurthy RN Amended: Links added.
[2018-10-22] MEDS: scopolamine 1.5mg patch.TD72 TD SCH (19:02)
[2018-10-22 20:00] VITALS: BP 108/55
--- NOTE | 2018-10-23 06:25 | NUR ---
Problems reprioritized. Patient report given, questions answered & plan of care reviewed with VASILE Kang.
--- NOTE | 2018-10-23 06:59 | NUR ---
Patient in room MIR[facility] 353. I have received report from Darya BURNETTE and had the opportunity to ask questions and assume patient care.
[2018-10-23 08:11] VITALS: BP 91/45
--- NOTE | 2018-10-23 18:30 | NUR ---
Patient in room [facility] 353. I have received report from Pearl BURNETTE and had the opportunity to ask questions and assume patient care. Patient resting introduced, will continue to monitor.
--- NOTE | 2018-10-23 18:49 | NUR ---
Problems reprioritized. Patient report given, questions answered & plan of care reviewed with Roopa BURNETTE .
[2018-10-23 20:00] VITALS: BP 122/74
--- NOTE | 2018-10-23 22:30 | NUR ---
Patient requested that we write a note for Xin that states that her caregiver is part of a progressional movement. Attempted to clarify what she meant and she continued to repeat but did not explain further. Will pass on to day shift.
[2018-10-24] MEDS: morphine 10mg/0.5ml (conc. morphine) oral syringe PO PRN ×2 (03:10→19:59)
--- NOTE | 2018-10-24 06:20 | NUR ---
Problems reprioritized. Patient report given, questions answered & plan of care reviewed with Pearl BURNETTE. Patient repositioned due to discomfort. States improved comfort.
[2018-10-24 12:00] VITALS: BP 115/61
--- NOTE | 2018-10-24 18:36 | NUR ---
Problems reprioritized. Patient report given, questions answered & plan of care reviewed with Roopa BURNETTE.
--- NOTE | 2018-10-24 18:36 | NUR ---
Patient in room [facility]. I have received report from Pearl BURNETTE and had the opportunity to ask questions and assume patient care. Patient resting, ate minimal amount of food, appears comfortable at this time. Will continue to monitor.
[2018-10-24 19:00] VITALS: BP 110/78
[2018-10-25] MEDS: morphine 10mg/0.5ml (conc. morphine) oral syringe PO PRN ×2 (00:14→19:17)
--- NOTE | 2018-10-25 01:45 | NUR ---
Received order from Parker MAGUIRE to change patient to nectar thick liquids and change dressing to midline as needed. Will continue to monitor.
--- NOTE | 2018-10-25 06:36 | NUR ---
Problems reprioritized. Patient report given, questions answered & plan of care reviewed with Luna RN. Patient resting eyes closed respirations even.
--- NOTE | 2018-10-25 06:46 | NUR ---
Patient in room [facility]. I have received report from Gianluca Blas and had the opportunity to ask questions and assume patient care.
[2018-10-25 07:00] VITALS: BP 111/54
--- NOTE | 2018-10-25 11:21 | NUR ---
Reassessment: Pt with poor appetite per MD progress notes, no intervention implemented at this time d/t pt continuing on palliative/comfort care. [facility] 10/24. Will continue to follow. Recommendations: 1) Monitor need for bowel care per comfort care measures Addendum: 10/25/18 at [address] Amended: Links added.
[2018-10-25] MEDS: scopolamine 1.5mg patch.TD72 TD SCH (12:20)
[2018-10-25 18:00] VITALS: BP 106/54
--- NOTE | 2018-10-25 18:08 | NUR ---
Received report from VASILE Carrasco. Patient is awake and alert on 2L NC, in no apparent distress. Call light and items of frequent use within reach. Will continue to monitor.
--- NOTE | 2018-10-25 18:32 | NUR ---
Problems reprioritized. Patient report given, questions answered & plan of care reviewed with VASILE Lackey.
[2018-10-26] MEDS: morphine 10mg/0.5ml (conc. morphine) oral syringe PO PRN ×2 (05:22→10:59)
--- NOTE | 2018-10-26 06:23 | NUR ---
Problems reprioritized. Patient report given, questions answered & plan of care reviewed with VASILE Carrasco.
--- NOTE | 2018-10-26 06:38 | NUR ---
Patient in room [facility]. I have received report from VASILE Lackey and had the opportunity to ask questions and assume patient care.
[2018-10-26 07:00] VITALS: BP 82/63
--- NOTE | 2018-10-26 15:38 | NUR ---
Nika from [facility] about order for Right Thoracentesis Asking urgency. Phoned Guadalupe Saini to discuss and was informed as palliative tx can wait until staff are already present on 09/26 to do the procedure. Notified Nika of timing.
--- NOTE | 2018-10-26 18:16 | NUR ---
Received report from VASILE Carrasco. Patient is awake and alert on 2L NC. In no apparent distress. Call light and items of frequent use within reach. Will continue to monitor.
--- NOTE | 2018-10-26 18:39 | NUR ---
Problems reprioritized. Patient report given, questions answered & plan of care reviewed with VASILE Lackey.
[2018-10-26 20:00] VITALS: BP 102/66
[2018-10-27] MEDS: morphine 10mg/0.5ml (conc. morphine) oral syringe PO PRN ×4 (01:25→21:20)
--- NOTE | 2018-10-27 06:51 | NUR ---
Patient in room MIR[facility] 353. I have received report from Darya BURNETTE and had the opportunity to ask questions and assume patient care.
[2018-10-27 07:00] VITALS: BP 127/68
--- NOTE | 2018-10-27 18:10 | NUR ---
Problems reprioritized. Patient report given, questions answered & plan of care reviewed with Darya BURNETTE.
--- NOTE | 2018-10-27 18:10 | NUR ---
Received report from VASILE Kang. Patient is awake and alert on 2L NC, in no apparent distress. Call light within reach. Will continue to monitor.
[2018-10-27 20:00] VITALS: BP 105/76
[2018-10-28] VITALS (8 sets, daily range): BP systolic 94–131; BP diastolic 45–71
--- NOTE | 2018-10-28 06:09 | NUR ---
Patient in room MIR[facility] 353. I have received report from Darya BURNETTE and had the opportunity to ask questions and assume patient care.
--- NOTE | 2018-10-28 06:09 | NUR ---
Problems reprioritized. Patient report given, questions answered & plan of care reviewed with VASILE Kang.
[2018-10-28] MEDS: morphine 10mg/0.5ml (conc. morphine) oral syringe PO PRN ×4 (07:33→20:59)
--- NOTE | 2018-10-28 10:00 | NUR ---
Spoke to Nika in [facility] asked what time they thought they were coming to either do Thoracentesis or R side chest tube. She stated she did not have a time at this time. No need for patient to be NPO, Nika is also aware patient has not had labs since 10/18 Palliative / comfort care patient she will advise Fabio Reid.
[2018-10-28] MEDS: scopolamine 1.5mg patch.TD72 TD SCH (12:24)
--- NOTE | 2018-10-28 12:51 | NUR ---
Clamped chest tube per Fabio Reid Orders.
--- NOTE | 2018-10-28 14:15 | NUR ---
Dr Keith on the floor to see patients. Advised Dr Keith the [facility] Stockt[facility] came by to see the patient and Put in orders for nursing to clamp patients chest tube and to reopen if patient became short of breath. I also informed Dr Keith that patients tongue is very red and painful received orders for Nystatin swish and swallow TID. Dr Keith is aware that patients toes are purple but she does have doppler pulses to posterior tibial. Dr Keith is aware that [facility] is going do a Thoracentesis sometime today they are trying to reach patients daughter Allyson for consent. Dr Keith ordered a Tunnel chest tube for tomorrow.
[2018-10-28] MEDS ORDERED: LIDOcaine 1%/PF 5ML 10 MG/ML VIAL ONE (14:16)
--- NOTE | 2018-10-28 18:38 | NUR ---
Problems reprioritized. Patient report given, questions answered & plan of care reviewed with Darya BURNETTE.
[2018-10-28] MEDS: nystatin 500,000 unit/5ML UD oral suspension PO SCH (20:58)
[2018-10-29] MEDS: morphine 10mg/0.5ml (conc. morphine) oral syringe PO PRN ×4 (04:18→15:08)
--- NOTE | 2018-10-29 06:35 | NUR ---
Problems reprioritized. Patient report given, questions answered & plan of care reviewed with VASILE Mccall.
--- NOTE | 2018-10-29 06:51 | NUR ---
Patient in room MIR[facility] 353. I have received report from Darya BURNETTE and had the opportunity to ask questions and assume patient care.
[2018-10-29 07:00] VITALS: BP 86/47
[2018-10-29] MEDS: nystatin 500,000 unit/5ML UD oral suspension PO SCH ×3 (08:00→21:35)
[2018-10-29 11:00] VITALS: BP 98/45
--- NOTE | 2018-10-29 13:40 | NUR ---
IR team to patient bedside Dr Ballard Removed chest tube, patient tolerated procedure well Nurse was informed of chest tube removal
--- NOTE | 2018-10-29 15:25 | NUR ---
Dr. Keith made rounds, I let him know that patient came back to her room from IR without chest tube.
--- NOTE | 2018-10-29 18:30 | NUR ---
Patient in room [facility]. I have received report from Stefany BURNETTE and had the opportunity to ask questions and assume patient care. Patient resting eyes closed respirations even. Will continue to monitor.
--- NOTE | 2018-10-29 18:40 | NUR ---
Problems reprioritized. Patient report given, questions answered & plan of care reviewed with Shirley BURNETTE.
[2018-10-29 20:00] VITALS: BP 75/44
[2018-10-30] MEDS: morphine 10mg/0.5ml (conc. morphine) oral syringe PO PRN ×4 (03:24→14:36)
--- NOTE | 2018-10-30 06:30 | NUR ---
Problems reprioritized. Patient report given, questions answered & plan of care reviewed with Gabrielle BURNETTE. Patient resting eyes closed respirations present.
--- NOTE | 2018-10-30 06:33 | NUR ---
Patient in room [facility]. I have received report from Roopa BURNETTE and had the opportunity to ask questions and assume patient care.
[2018-10-30 07:00] VITALS: BP 83/56
--- NOTE | 2018-10-30 07:56 | NUR ---
O2 Sat at rest on room air If below 89%: Recovery O2 Sat at rest on 2 LPM: 81% via Nasal Cannula. No further documentation is necessary.
[2018-10-30] MEDS: nystatin 500,000 unit/5ML UD oral suspension PO SCH ×2 (08:09→13:00)
--- NOTE | 2018-10-30 15:30 | NUR ---
patient is for discharge. legal support manager had organised DC home. Patients friend came to [place] picking machine operator patient and will drive patient home to [place]. PT assisted with Transfer into [place]. patient is very odematous. Also requiring O2. Patients friend had picked up mobile O2 Unit. All DC instructions given to patient and friend. Friend stated she will call hospice nurse and Content Developer to transfer patient from car to house. PT and staff stressed importance of getting help in transfer. Family had refused to cover cost of ambulance or [employer]. Friend confident that they will be ok when back at home. All DC instructions discussed with friend. See microbiology technologist note with regards to this DC. DC home 1530hrs. patient is in guarded condition for transfer.
== END 2018-10-30 15:28 | disposition hospice, home (50) | DRG 270 ==
LOC: CICU 2S 09:50 → UNDOADMIN 09:50 → CICU 2S 12:22 → PCU 3S 10-12 12:05 → ICU 2S 10-13 08:27 → MED 3N 10-15 18:37 → SUR 3N 10-17 17:50
PROVIDERS: ADMIT Internal Medicine Critical Care Medicine; ATTEND Internal Medicine Critical Care Medicine
PROC: 02BN0ZX Excision of Pericardium, Open Approach, Diagnostic (ICD-10-PCS; 2018-10-09)
PROC: 02H633Z Insertion of Infusion Device into Right Atrium, Percutaneous Approach (ICD-10-PCS; 2018-10-09)
PROC: 04HY32Z Insertion of Monitoring Device into Lower Artery, Percutaneous Approach (ICD-10-PCS; 2018-10-09)
PROC: 4A133B1 Monitoring of Arterial Pressure, Peripheral, Percutaneous Approach (ICD-10-PCS; 2018-10-09)
PROC: 4A133J1 Monitoring of Arterial Pulse, Peripheral, Percutaneous Approach (ICD-10-PCS; 2018-10-09)
PROC: 0W9D00Z Drainage of Pericardial Cavity with Drainage Device, Open Approach (ICD-10-PCS; principal; 2018-10-09 12:52)
PROC: 5A1945Z Respiratory Ventilation, 24-96 Consecutive Hours (ICD-10-PCS; 2018-10-13)
PROC: 02HV33Z Insertion of Infusion Device into Superior Vena Cava, Percutaneous Approach (ICD-10-PCS; 2018-10-13)
PROC: 0BH17EZ Insertion of Endotracheal Airway into Trachea, Via Natural or Artificial Opening (ICD-10-PCS; 2018-10-13)
PROC: B246ZZ4 Ultrasonography of Right and Left Heart, Transesophageal (ICD-10-PCS; 2018-10-13)
PROC: 0B968ZZ Drainage of Right Lower Lobe Bronchus, Via Natural or Artificial Opening Endoscopic (ICD-10-PCS; 2018-10-14)
PROC: 07B74ZX Excision of Thorax Lymphatic, Percutaneous Endoscopic Approach, Diagnostic (ICD-10-PCS; 2018-10-14)
PROC: 0W9B30Z Drainage of Left Pleural Cavity with Drainage Device, Percutaneous Approach (ICD-10-PCS; 2018-10-16)
PROC: 0W993ZZ Drainage of Right Pleural Cavity, Percutaneous Approach (ICD-10-PCS; 2018-10-28)
DX: I31.3 Pericardial effusion (noninflammatory) (principal); J96.00 Acute respiratory failure, unspecified whether with hypoxia or hypercapnia; F11.20 Opioid dependence, uncomplicated; I48.92 Unspecified atrial flutter; C78.1 Secondary malignant neoplasm of mediastinum; J90 Pleural effusion, not elsewhere classified; I31.4 Cardiac tamponade; E03.9 Hypothyroidism, unspecified; R54 Age-related physical debility; I48.91 Unspecified atrial fibrillation; F31.9 Bipolar disorder, unspecified; G14 Postpolio syndrome; C80.1 Malignant (primary) neoplasm, unspecified; G89.29 Other chronic pain; E66.9 Obesity, unspecified; E86.0 Dehydration; I95.9 Hypotension, unspecified; J44.9 Chronic obstructive pulmonary disease, unspecified; R62.7 Adult failure to thrive; Z51.5 Encounter for palliative care; Z96.653 Presence of artificial knee joint, bilateral; Z72.0 Tobacco use; Z88.8 Allergy status to other drugs, medicaments and biological substances; Z68.33 Body mass index [BMI] 33.0-33.9, adult; Z91.041 Radiographic dye allergy status; W18.39XA Other fall on same level, initial encounter; Y93.89 Activity, other specified; Y92.89 Other specified places as the place of occurrence of the external cause; Y99.8 Other external cause status
CPT/HCPCS: 31622; 31628; 32555; 32557; 36415; 36600; 70450; 71045; 71250; 74018; 74176; 80053; 82042; 82140; 82150; 82247; 82248; 82570; 82607; 82803; 82810; 82945; 82948; 83605; 83615; 83690; 83721; 83735; 83880; 83986; 84100; 84132; 84134; 84145; 84157; 84439; 84443; 84484; 84540; 85018; 85025; 86038; 86160; 87040; 87070; 87075; 87077; 87102; 87186; 88108; 88304; 88305; 88341; 88342; 89051; 92616; 93005; 93306; 93312; 93325; 94002; 94003; 94640; 94760; 97110; 97161; 97530; A6449; A7000; A7048; C9113; G0378; J0153; J0171; J0282; J0330; J0690; J1200; J1644; J1815; J2001; J2250; J2270; J2370; J2543; J2765; J2920; J2930; J3010; J3475; J3480; J3490; J7030; J7060; J7120; J7512; P9045; P9047; Q9963